=== PATIENT | male | born 1955 | race Caucasian/White ===

== ENCOUNTER 2020-12-22 17:38 | Inpatient (IN) ==
[2020-12-22] MEDS ORDERED: IOPAMIDOL 100 ML BOTTLE IV ONE (17:39)
[2020-12-22] MEDS ORDERED: 0.9 % SODIUM CHLORIDE 1,000 ML IV ONE ×2 (18:00→18:32)
[2020-12-22] MEDS ORDERED: morphine 4 MG/ML VIAL IV ONE (18:00)
[2020-12-22] MEDS ORDERED: PIPERACILLIN SODIUM/TAZOBACTAM 3.375 GM in DEXTROSE 5% IN WATER 50 ML IV ONE (18:32)
[2020-12-22] MEDS ORDERED: VANCOMYCIN 1,500 MG in 0.9 % SODIUM CHLORIDE 500 ML IV ONE (18:32)
--- NOTE | 2020-12-22 19:05 | XRay Report ---
HISTORY: Failure to thrive, tachycardia and weakness FINDINGS: Right diaphragm has become mildly elevated. Above the diaphragm there is a small opacity which may be a combination of discoid atelectasis and pneumonia. Left lung is clear. The heart size is normal. No adenopathy or pleural effusion are present. Comparison with the prior exam from 04/22/16 shows the opacity in the right lung base is a new finding. 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 The humeral head is impacted against the acromion which is indirect evidence of a rotator cuff tear. Impression: mild atelectasis in the right lung base. There may be superimposed mild pneumonia. Interpreted and Authenticated by: Artis Braun 12/22/20
[2020-12-22 19:24] LABS: Basophils # (Auto) 0.03 K/mcL (0.00-0.30); Basophils % (Auto) 0.2 % (0.0-2.0); Eosinophils # (Auto) 0 K/mcL (0.00-0.70); Eosinophils % (Auto) 0 % (0.0-7.0); Hematocrit 42.7 % (40.1-51.0); Hemoglobin 14.3 g/dL (13.7-17.5); Lymphocytes # (Auto) 1.44 K/mcL (1.50-4.80); Lymphocytes % (Auto) 9.7 % (15.5-49.0); Mean Cell Volume 91.2 fL (80.0-100.0); Mean Corpuscular HGB Conc 33.5 g/dL (31.0-36.0); Mean Platelet Volume 8.8 fL (7.4-10.4); Monocytes # (Auto) 1.09 K/mcL (0.10-0.90); Monocytes % (Auto) 7.3 % (1.0-12.0); Neutrophils % (Auto) 82.8 % (38.0-78.0); Platelet Count 171 K/mcL (140-440); RBC 4.68 M/mcL (4.63-6.08); Red Cell Distribution Width 14.5 % (11.5-14.5); WBC 14.8 K/mcL (4.5-11.0)
[2020-12-22 19:47] LABS: ALT/SGPT 18 U/L (<40); AST/SGOT 33 U/L (<40); Albumin 2.1 gm/dL (3.2-5.2); Albumin/Globulin Ratio 0.3 (1.0-2.3); Alkaline Phosphatase 86 U/L (39-117); Bilirubin,Total 1.5 mg/dL (0.1-1.0); Blood Urea Nitrogen 25 mg/dL (8-23); Calcium 8.7 mg/dL (8.6-10.4); Carbon Dioxide 14 mmol/L (22-30); Chloride 85 mmol/L (96-108); Glomerular Filtration Rate 79; Glucose 167 mg/dL (70-105)
[2020-12-22 20:28] LABS: Appearance,Urine HAZY (Clear); Bilirubin,Urine Negative (Negative); Color,Urine Yellow; Culture Indicated,Urine yes; Glucose,Urine (UA) Negative (Negative); Ketones,Urine 20 mg/dL (Negative); Leukocyte Esterase,Urine Negative /uL (Negative); Mucus,Urine MANY /hpf; Nitrate,Urine Negative (Negative); Protein,Urine Negative (Negative); Specific Gravity,Urine 1.026 (1.000-1.035); Urine Hyaline Cast 17 /lph (0-2); Urine RBC > 182 /hpf (0-1); Urine Squamous Epithelial Cell 0 /hpf (0-4); Urine WBC 15 /hpf (0-4)
--- NOTE | 2020-12-22 20:55 | Emergency Department Note ---
HPI General Chief complaint: Weakness Stated complaint: Failure to thrive, tachycardia, weakness Time Seen by Provider: 12/22/20 17:59 Source: patient and EMS Mode of arrival: EMS Limitations: no limitations History of Present Illness HPI Narrative: Narrative: Patient is a 65-year-old male who presented with chief complaint of not feeling well. Patient was brought in by EMS after his brother found him at the hotel where he was staying laying down and unable to get up with help. Patient states over the past 3 weeks has been getting worse and worse in terms of feeling fatigued, weak, and having occasional body aches. He states that also started the same time that he had some redness and discomfort in his left lower extremity. He states that has worsened over the week, and has started ooze blood at times. He denies any known trauma to the area, and otherwise denies any known fever, headache, cough, shortness of breath, chest pain, nausea, vomiting, abdominal pain, changes in bowel movements or urinary symptoms. Patient does not follow with a PCP. Related Data Home Medications Medication Instructions Recorded Confirmed No Known Home Meds 12/22/20 12/22/20 Allergies Allergy/AdvReac Type Severity Reaction Status Date / Time No Known Drug Allergies Allergy Verified 12/22/20 17:42 Review of Systems ROS ROS Narrative: Narrative: All systems ED: reviewed and negative except as stated. [facility] Narrative Patient History Narrative: Narrative: Medical/Surgical/Family History All Active Problems (Updated 12/22/20 @ 20:59 by Arie Lomas DO) Sepsis (Acute) Cellulitis (Acute) Hyponatremia (Acute) Social History Smoking Status: Former smoker Exam Narrative Narrative: Narrative: Patient is laying in bed, talking normally and appropriately. He does not appear to be in acute discomfort or distress. Patient does appear to be cachectic and disheveled in nature. General Limitations: no limitations Head Head: Present atraumatic and normocephalic Eye Eye: Present normal appearance, PERRL and EOMI; Absent scleral icterus and conju nctival injection ENT ENT: Present normal oropharynx and mucous membranes moist Neck Neck: Present full ROM and trachea midline; Absent tenderness and lymphadenopathy Chest Chest: Present symmetric chest wall rise Respiratory Respiratory: Present normal lung sounds bilaterally; Absent respiratory distress, rales/crackles, wheezes, stridor and accessory muscle use Cardiovascular Cardiovascular: Present regular rate and normal rhythm; Absent systolic murmur and diastolic murmur Adbominal Abdominal: Present soft; Absent tenderness, guarding, rebound, rigidity and mass Extremities Extremities: Absent pedal edema, pretibial edema and calf tenderness Expanded Lower Extremity Foot/toe: Present full ROM, erythema and other (Oozy blood and erythema consistent with what appears to be cellulitis. No obvious open wound or evidence of diabetic foot ulcer.); Absent swelling, ecchymosis, deformity and crepitus Back Back: Absent CVA tenderness (R), CVA tenderness (L) and spinous process tenderness Neurological Neurological: Present alert and oriented X3 Psychiatric Psychiatric: Present normal affect and normal mood Skin Skin: Present warm (WNL) and dry Course Vital Signs Vital signs: Vital Signs Temperature 98.8 F 12/22/20 17:38 Pulse Rate 140 H 12/22/20 17:38 Respiratory Rate 28 H 12/22/20 17:38 Blood Pressure 146/73 12/22/20 17:38 Pulse Oximetry (%) 97 12/22/20 17:38 Temperature 98.8 F 12/22/20 17:38 Pulse Rate 101 H 12/22/20 20:46 Respiratory Rate 18 12/22/20 20:46 Blood Pressure 148/77 12/22/20 20:46 Pulse Oximetry (%) 96 12/22/20 20:46 MDM MDM Narrative Medical decision making narrative: Narrative: Patient is a 65-year-old male present with chief complaint of not feeling well. Patient presented initially with tachycardia in the 130s to 140s, though blood pressures were stable. Initial exam and discussion with the patient suggested likely a issue with sepsis secondary to cellulitis of the foot. Initial blood work showed elevated white blood count, elevated lactic acid of 2.1, and hyponatremia at 117. Blood glucose was only 167. Patient was started on broad- spectrum antibiotics and IV fluids prior to blood work returning, and we will stop any further fluids at this time due to his hyponatremia and not wanting to over correcting too quickly. Chest x-ray was nonacute, and at this time I do have a high suspicion that the source is his foot. Plan will be to admit him to the hospital for sepsis and further work-up and management. Patient is agreeable to the plan at this time is no further concerns or questions. I did discuss the case with the hospitalist. Lab Data Result diagrams: 12/22/20 18:00 12/22/20 18:00 Labs: Lab Results 12/22/20 12/22/20 12/22/20 Range/Units 18:00 18:00 19:00 WBC 14.8 H (4.5-11.0) K/mcL RBC 4.68 (4.63-6.08) M/mcL Hgb 14.3 (13.7-17.5) g/dL Hct 42.7 (40.1-51.0) % MCV 91.2 (80.0-100.0) fL MCH 30.6 (26.0-34.0) pg MCHC 33.5 (31.0-36.0) g/dL RDW 14.5 (11.5-14.5) % Plt Count 171 (140-440) K/mcL MPV 8.8 (7.4-10.4) fL Neut % (Auto) 82.8 H (38.0-78.0) % Lymph % (Auto) 9.7 L (15.5-49.0) % [place] % (Auto) 7.3 (1.0-12.0) % Eos % (Auto) 0 (0.0-7.0) % Baso % (Auto) 0.2 (0.0-2.0) % Lymph # (Auto) 1.44 L (1.50-4.80) K/mcL [place] # (Auto) 1.09 H (0.10-0.90) K/mcL Eos # (Auto) 0 (0.00-0.70) K/mcL Baso # (Auto) 0.03 (0.00-0.30) K/mcL Absolute Neutrophils 12.27 H (1.80-8.00) K/mcL Sodium 117 L* (133-145) mmol/L Potassium 4.0 (3.3-5.1) mmol/L Chloride 85 L (96-108) mmol/L Carbon Dioxide 14 L (22-30) mmol/L Anion Gap 18.0 H (8.0-16.0) BUN 25 H (8-23) mg/dL Creatinine 1.0 (0.7-1.2) mg/dL GFR Calculation 79 Glucose 167 H (70-105) mg/dL Calcium 8.7 (8.6-10.4) mg/dL Total Bilirubin 1.5 H (0.1-1.0) mg/dL AST 33 (<40) U/L ALT 18 (<40) U/L Alkaline Phosphatase 86 (39-117) U/L Total Protein 8.1 (5.9-8.4) gm/dL Albumin 2.1 L (3.2-5.2) gm/dL Globulin 6.0 H (2.2-3.7) gm/dL Albumin/Globulin Ratio 0.3 L (1.0-2.3) Urine Color Yellow Urine Appearance Hazy A (Clear) Urine pH 6.0 (5.0-9.0) Ur Specific [place] 1.026 (1.000-1.035) Urine Protein Negative (Negative) mg/dL Urine Glucose (UA) Negative (Negative) mg/dL Urine Ketones 20 A (Negative) mg/dL Urine Occult Blood 0.20 (Negative) mg/dL Urine Nitrate Negative (Negative) Urine Bilirubin Negative (Negative) mg/dL Urine Urobilinogen 4.0 A mg/dL Ur Leukocyte Esterase Negative (Negative) /uL Urine RBC > 182 H (0-1) /hpf Urine WBC 15 H (0-4) /hpf Ur Squamous Epith Cells 0 (0-4) /hpf Urine Bacteria None (0) /hpf Hyaline Casts 17 H (0-2) /lph Urine Mucus Many A (None) /hpf Ur Culture Indicated? yes ED POC Tests ED POC Tests: RUSS - Influenza A Negative RUSS - Influenza B Negative RUSS - SARS Antigen Negative CC TIME Critical Care Time Critical Care Time: Yes Total Critical Care Time: 60 Discharge Plan Patient/Caregiver Discharge Instructions Pt seen by PRACTICE PHYSICIAN/PA only: No Clinical Impression: Sepsis, Cellulitis, Hyponatremia Patient Disposition: Xfer As Inpt ([facility]) Condition: Fair Follow up with: No,PCP [Primary Care Provider] - Prescriptions: No Action No Known Home Meds RF: 0
--- NOTE | 2020-12-22 21:34 | Internal Med History&Physical ---
HPI History of Present Illness Patient information: Note initiated : 12/22/20 at 9:25 pm Service Date, if different from initiated Date: [] Patient: Ken Hook a 65 y/o M admitted on for Failure to thrive, tachycardia, weakness. Chief Complaint: [sepsis 2/2 left diabetic ulcer, hyponateremia] History of present illness: Mr. Hook is a 65 year old M history of type 2 diabetes mellitus, medical noncompliance, presenting with 3 weeks history of le ft foot ulcer as well as general body weakness. There was no prior similar episode. Patient does not recall having any injury or trauma to his left foot. Patient is medically noncompliant and he is not taking any medications. Patient is complaining of 3-week history of left foot ulcer on the plantar aspect with associated severe constant sharp pain. He is also complaining of general body weakness to the point that he cannot get out of the bed for the last 3 weeks. He denies any associated fever chills or diaphoresis. There is no alleviating or exacerbating factors. No GI symptoms such as nausea vomiting diarrhea or constipation's. Due to his symptoms, he presented to our ED this evening for further evaluations. Vital signs significant for tachycardia with heart rate in the 1 teens, with the rest of the vital signs within normal limits. Labs significant for leukocytosis with WBC 14.8. Lactic acid pending. Procalcitonin pending. Serum sodium level 117, serum glucose level 167, bicarb 14, anion gap 18. Imagines results pending. Constitutional Constitutional: Present weakness; Absent chills, excessive sweating, fatigue and fever(s) EENT Eyes: Absent blurry vision, change in vision, loss of vision and other visual disturbances Ears: Absent decreased hearing and tinnitus Nose, mouth and throat: Absent abnormal hearing, dry mouth, headache(s), nasal congestion and sore throat Cardiovascular Cardiovascular: Absent chest pain, chest pain at rest, edema, irregular heart rhythm and palpatations Respiratory Respiratory: Absent cough, dyspnea and wheezing Gastrointestinal Gastrointestinal: Absent abdominal pain, constipation, diarrhea, nausea and vomiting Musculoskeletal Musculoskeletal: Absent back pain, deformity, limited range of motion, muscle cramps, muscle weakness and numbness Additional comments: Left foot pain Integumentary Integumentary: Absent lesions, rash and wounds Neurological Neurological: Absent focal weakness, headache(s) and numbness Psychiatric Psychiatric: Absent anxiety, depression and hallucinations PFSH PFSH All Active Problems (Updated 12/22/20 @ 21:30 by Robel Mccauley MD) Medical non-compliance (Acute) T2DM (type 2 diabetes mellitus) (Acute) Diabetic foot ulcer (Acute) Sepsis (Acute) Cellulitis (Acute) Hyponatremia (Acute) MEDS/ALLERGIES Home Medications and Allergies Home Medications Medication Instructions Recorded Confirmed Type No Known Home Meds 12/22/20 12/22/20 History Allergies Allergy/AdvReac Type Severity Reaction Status Date / Time No Known Drug Allergies Allergy Verified 12/22/20 17:42 EXAM Constitutional Vitals: Temp Pulse Resp BP Pulse Ox 37.1 C 114 H 21 163/75 96 12/22/20 17:38 12/22/20 21:07 12/22/20 21:07 12/22/20 21:01 12/22/20 21:07 General appearance: cooperative, disheveled and no acute distress Head Head exam: Present atraumatic and normocephalic Eye Eye exam: Present EOMI and PERRL ENT ENT exam: Present mucous membranes moist, normal exam and normal external ear exam Neck Neck exam: Present normal inspection; Absent lymphadenopathy, tenderness and thyromegaly Respiratory Respiratory exam: Absent accessory muscle use, respiratory distress and wheezes Cardiovascular Cardiovascular exam: Present normal rate and rhythm; Absent JVD GI/Abdominal GI/Abdominal exam: Present normal bowel sounds and soft; Absent organomegaly and tenderness Rectal Rectal exam: Present deferred Additional comments: Cunha catheter in place Extremities Exam Extremities exam: Present full ROM, normal capillary refill and tenderness; Absent normal inspection Additional comments: Left plantar foot ulcer covered with wound dressing Neurological Exam Neurological exam: Present alert, CN II-XII intact and oriented X3; Absent motor sensory deficit Psychiatric Psychiatric exam: Present normal affect and normal mood; Absent anxious and depressed Skin Skin exam: Present dry, erythema, rash and warm; Absent intact DATA Data Completed and Pending Labs: Labs from last 24 hours 12/22/20 12/22/20 12/22/20 19:00 18:00 18:00 WBC 14.8 H RBC 4.68 Hgb 14.3 Hct 42.7 MCV 91.2 MCH 30.6 MCHC 33.5 RDW 14.5 Plt Count 171 MPV 8.8 Neut % (Auto) 82.8 H Lymph % (Auto) 9.7 L [place] % (Auto) 7.3 Eos % (Auto) 0 Baso % (Auto) 0.2 Lymph # (Auto) 1.44 L [place] # (Auto) 1.09 H Eos # (Auto) 0 Baso # (Auto) 0.03 Absolute Neutrophils 12.27 H Sodium 117 L* Potassium 4.0 Chloride 85 L Carbon Dioxide 14 L Anion Gap 18.0 H BUN 25 H Creatinine 1.0 GFR Calculation 79 Glucose 167 H Calcium 8.7 Total Bilirubin 1.5 H AST 33 ALT 18 Alkaline Phosphatase 86 Total Protein 8.1 Albumin 2.1 L Globulin 6.0 H Albumin/Globulin Ratio 0.3 L Urine Color Yellow Urine Appearance Hazy A Urine pH 6.0 Ur Specific [place] 1.026 Urine Protein Negative Urine Glucose (UA) Negative Urine Ketones 20 A Urine Occult Blood 0.20 Urine Nitrate Negative Urine Bilirubin Negative Urine Urobilinogen 4.0 A Ur Leukocyte Esterase Negative Urine RBC > 182 H Urine WBC 15 H Ur Squamous Epith Cells 0 Urine Bacteria None Hyaline Casts 17 H Urine Mucus Many A Ur Culture Indicated? yes A/P Assessment and plan (1) Sepsis: Status: Acute (2) Diabetic foot ulcer: Status: Acute (3) T2DM (type 2 diabetes mellitus): Status: Acute (4) Hyponatremia: Status: Acute (5) Medical non-compliance: Status: Acute Narrative A/P Narrative: Assessment and Plans: #1 clinical sepsis secondary to left foot plantar aspect diabetic foot ulcer: Admit to inpatient PCU telemetry Consult physics professor Dr. Cortez, recommendation appreciated Serial lactic acid Procalcitonin Blood culture Wound culture CBC with auto differential in the morning to trend WBC Vancomycin, MRSA screening, okay to DC vancomycin when MRSA screening is negative Zosyn Tylenol as needed fever Oxycodone as needed moderate pain Morphine IV as needed severe pain Physical therapy evaluation and treatment Occupational Therapy evaluation and treatment Hemoglobin A1c Hold any oral hypoglycemics Low-dose correctional scale insulin is suggested Accu-Chek AC at bedtime Hypoglycemia protocol Diabetic diet certified breastfeeding educator 2. Hyponatremia: Serum osmolality, urine osmolality, random urine sodium level, TSH to investigate the nature of the hyponatremia Status post IV fluid boluses given in the ED, to be followed by IV NS at 75 cc/h BMP every 8 hours, goals of corrections 8-10 points over the first 24 hours in order to avoid neurological consequences such as central pontine myelinolysis 3. 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
[2020-12-22 22:01] LABS: Osmolality,Urine 776 mOSM/kg (80-1000)
[2020-12-22] MEDS ORDERED: ONDANSETRON 4 MG/2 ML VIAL IV PRN (22:23)
[2020-12-22] MEDS ORDERED: IPRATROPIUM/ALBUTEROL 3 ML AMPUL.NEB NEB PRN (22:23)
[2020-12-22] MEDS ORDERED: DEXTROSE 50% 50 ML VIAL IV PRN (22:23)
[2020-12-22] MEDS ORDERED: SENNOSIDES 1 TABLET PO PRN (22:23)
[2020-12-22] MEDS ORDERED: morphine 4 MG/ML VIAL IV PRN (22:23)
[2020-12-22] MEDS ORDERED: LACTULOSE 20 GM/30 ML ORAL.SOL PO PRN (22:23)
[2020-12-22] MEDS ORDERED: DEXTROSE 31 GM ORAL.SUSP PO PRN (22:23)
[2020-12-22] MEDS ORDERED: 0.9 % SODIUM CHLORIDE 1,000 ML IV SCH (22:23)
[2020-12-22] MEDS ORDERED: VANCOMYCIN PER PHARMACY IV ONE (22:23)
[2020-12-22 22:50] LABS: Thyroid Stimulating Hormone 1.15 uIU/mL (0.27-5.01)
[2020-12-22 22:52] LABS: Sodium, Urine Random 20 mmol/L
[2020-12-22 23:51] LABS: Blood Urea Nitrogen 25 mg/dL (8-23); Calcium 7.7 mg/dL (8.6-10.4); Carbon Dioxide 22 mmol/L (22-30); Chloride 96 mmol/L (96-108); Glomerular Filtration Rate 99; Glucose 129 mg/dL (70-105)
[2020-12-23] MEDS: PIPERACILLIN SODIUM/TAZOBACTAM 3.375 GM in DEXTROSE 5% IN WATER 50 ML IV SCH ×5 (00:31→23:35)
[2020-12-23 02:19] LABS: Hemoglobin A1C 5.2 % Hgb (4.0-6.0)
[2020-12-23] MEDS: 0.9 % SODIUM CHLORIDE 10 ML SYRINGE IV SCH ×4 (02:27→21:16)
[2020-12-23] MEDS ORDERED: VANCOMYCIN PER PHARMACY IV SCH (06:45)
[2020-12-23] MEDS: INSULIN LISPRO 1 UNIT/0.01 ML UNIT SQ SCH ×4 (08:01→21:16)
--- NOTE | 2020-12-23 08:16 | XRay Report ---
HISTORY: Left foot infection FINDINGS: There is severe erosion and fragmentation of the distal half of the fifth metatarsal. There is also erosion at the base of the adjacent proximal phalanx of the fifth toe. There is an open skin wound and soft tissue swelling. The remainder of the bones are normally mineralized. The remainder of the joint spaces are normal and there is no underlying arthritis except for a calcaneal spur. No vascular calcifications are present. IMPRESSION: Severe osteomyelitis involving the fifth metatarsal with milder osteomyelitis in the proximal phalanx of the fifth toe Interpreted and Authenticated by: Artis Braun 12/23/20
--- NOTE | 2020-12-23 08:32 | Cat Scan Report ---
History: diabetic with infection in the left foot and osteomyelitis in the fifth metatarsal TECHNIQUE: On injection of intravenous nonionic contrast the foot was imaged in axial plane at 2.5 mm intervals. Sagittal and coronal reformats were created. The radiation exposure was limited using dose reduction technology. FINDINGS: There is severe erosion of the distal half of the fifth metatarsal, with fragmentation into multiple small bone fragments. There is milder erosion in the medullary space in the proximal half of the shaft of the fifth metatarsal but the overlying cortex is intact. Infection extends across the metatarsal phalangeal joint into the base of the fifth metatarsal. There is erosion and mild fragmentation at the base of the proximal phalanx. There is a tiny bubble of air in the soft tissues at this level. The remainder the bones in the foot are intact with no other site of infection or other fracture. There is an abscess located along the dorsal lateral aspect of the foot centered over the fifth metatarsal. This extends medially and overlies the proximal shafts of the third and fourth metatarsals. The abscess measures 1.5 x 3.5 x 5 cm. It is multiloculated. There is surrounding cellulitis. There is very little atherosclerotic calcification in the foot. There is normal blood flow in the dorsalis pedis and posterior tibial arteries. Calcaneal spur is seen along the posterior border. IMPRESSION: Severe osteomyelitis in the fifth metatarsal and milder osteomyelitis in the proximal phalanx of fifth toe. Subcutaneous abscess along the dorsal lateral aspect of the foot Interpreted and Authenticated by: Artis Braun 12/23/20
[2020-12-23 08:34] LABS: ALT/SGPT 13 U/L (<40); AST/SGOT 30 U/L (<40); Albumin 1.7 gm/dL (3.2-5.2); Albumin/Globulin Ratio 0.3 (1.0-2.3); Alkaline Phosphatase 72 U/L (39-117); Bilirubin,Total 1.2 mg/dL (0.1-1.0); Blood Urea Nitrogen 22 mg/dL (8-23); Calcium 8.2 mg/dL (8.6-10.4); Carbon Dioxide 22 mmol/L (22-30); Chloride 97 mmol/L (96-108); Globulin 4.9 gm/dL (2.2-3.7); Glomerular Filtration Rate 106; Glucose 101 mg/dL (70-105); Phosphorous 2.1 mg/dL (2.5-4.5)
[2020-12-23 09:28] LABS: Blood Urea Nitrogen 22 mg/dL (8-23); Calcium 8.2 mg/dL (8.6-10.4); Carbon Dioxide 23 mmol/L (22-30); Chloride 97 mmol/L (96-108); Glomerular Filtration Rate 106; Glucose 108 mg/dL (70-105)
[2020-12-23] MEDS: HEPARIN 5,000 UNIT/ML VIAL SQ SCH ×2 (10:21→21:15)
[2020-12-23] MEDS: VANCOMYCIN 1,500 MG in 0.9 % SODIUM CHLORIDE 500 ML IV SCH ×2 (10:21→21:15)
[2020-12-23] MEDS: DOCUSATE SODIUM 100 MG CAPSULE PO SCH ×2 (10:27→21:15)
[2020-12-23 10:48] LABS: Basophils # (Auto) 0.04 K/mcL (0.00-0.30); Basophils % (Auto) 0.3 % (0.0-2.0); Eosinophils # (Auto) 0.01 K/mcL (0.00-0.70); Eosinophils % (Auto) 0.1 % (0.0-7.0); Hematocrit 35.2 % (40.1-51.0); Hemoglobin 11.8 g/dL (13.7-17.5); Lymphocytes # (Auto) 1.17 K/mcL (1.50-4.80); Lymphocytes % (Auto) 8.8 % (15.5-49.0); Mean Cell Volume 91.2 fL (80.0-100.0); Mean Corpuscular HGB Conc 33.5 g/dL (31.0-36.0); Mean Platelet Volume 9.1 fL (7.4-10.4); Monocytes # (Auto) 1.15 K/mcL (0.10-0.90); Monocytes % (Auto) 8.6 % (1.0-12.0); Neutrophils % (Auto) 82.2 % (38.0-78.0); Platelet Count 122 K/mcL (140-440); RBC 3.86 M/mcL (4.63-6.08); Red Cell Distribution Width 14.7 % (11.5-14.5); WBC 13.3 K/mcL (4.5-11.0)
--- NOTE | 2020-12-23 13:54 | Orthopedic Consult Note ---
HPI Data of Consult Consult date: 12/23/20 Primary Care Provider: PCP No Consult Narrative Patient Information: Note initiated : 12/23/20 at 1:51 pm Service Date, if different from initiated Date: [] Patient: Ken Hook a 65 y/o M admitted on 12/22/20 for Failure to thrive, tachycardia, weakness. Chief Complaint: [left foot infection] Ken is a 65-year-old male with a longstanding history of type 2 diabetes mellitus and foot ulcerations. He has had history of sepsis and cellulitis. He is currently dealing with an ulceration with bone destruction of the left foot. The preliminary CT and x-ray results show severe bony destruction to the left fifth metatarsal and proximal phalanx of left fifth toe. Clinically these areas are red swollen and draining. He does not have much discomfort from this area as there is profound neuropathy in his bilateral lower extremities. He is concerned about losing portion of his foot and has questions about balance. This comes is surprised and he did not realize that his bone was infected and would lead to these complications. cc:: CC: Robel Mccauley MD [facility] All Active Problems (Updated 12/22/20 @ 21:30 by Robel Mccauley MD) Medical non-compliance (Acute) T2DM (type 2 diabetes mellitus) (Acute) Diabetic foot ulcer (Acute) Sepsis (Acute) Cellulitis (Acute) Hyponatremia (Acute) MEDS/ALLERGIES Home Medications and Allergies Home Medications Medication Instructions Recorded Confirmed Type ibuprofen 800 mg PO QDAY PRN 12/23/20 12/23/20 History Allergies Allergy/AdvReac Type Severity Reaction Status Date / Time No Known Drug Allergies Allergy Verified 12/22/20 17:42 Physical Examination Narrative Narrative: Narrative: Ankle & Foot right: Foot appearance: swelling, erythema and other (Full-thickness wound right left fifth ray lateral aspect down to bone.) A/P Time Spent With Patient Time: Total time spent is greater than 50% in coordination of care (as documented) at patient's floor/unit and/or counseling patient: Patient evaluated and treated today to reveal the x-ray results of the bone infection consistent with clinical signs of infection Diabetic full thickness ulceration to bone of the left foot fifth metatarsal with toe and metatarsal osteomyelitis Plan is partial fifth ray amputation left foot pending stabilization constitutional likely later this week.
--- NOTE | 2020-12-23 14:41 | Internal Med Progress Note ---
SUBJECTIVE Subjective Patient information: Note initiated : 12/23/20 at 2:33 pm Service Date, if different from initiated Date: [] Patient: Ken Hook a 65 y/o M admitted on 12/22/20 for Failure to thrive, tachycardia, weakness. Chief Complaint: [diabetic foot ulcer with osteomyelitis of the left foot] Interval history: History of present illness: Mr. Hook is a 65 year old M history of type 2 diabetes mellitus, medical noncompliance, presenting with 3 weeks history of left foot ulcer as well as general body weakness. There was no prior similar episode. Patient does not recall having any injury or trauma to his left foot. Patient is medically noncompliant and he is not taking any medications. Patient is complaining of 3-week history of left foot ulcer on the plantar aspect with associated severe constant sharp pain. He is also compl aining of general body weakness to the point that he cannot get out of the bed for the last 3 weeks. He denies any associated fever chills or diaphoresis. There is no alleviating or exacerbating factors. No GI symptoms such as nausea vomiting diarrhea or constipation's. Due to his symptoms, he presented to our ED this evening for further evaluations. Vital signs significant for tachycardia with heart rate in the 1 teens, with the rest of the vital signs within normal limits. Labs significant for leukocytosis with WBC 14.8. Lactic acid pending. Procalcitonin pending. Serum sodium level 117, serum glucose level 167, bicarb 14, anion gap 18. Imagines results pending. 12/23: Afebrile overnight. Blood culture growing gram positive cocci in chain. Left foot CT: severe osteomyelitis in the fifth metatarsal and milder osteomyelitis in the proximal phalanx of the fifth toe. Fasting glucose 108. Serum sodium 125. WBC 13.3. c/o mild left foot pain. Denies fever or chills or sweating. Constitutional Vitals: Vital Signs Temp Pulse Resp BP Pulse Ox 36.6 C 103 H 21 116/87 96 12/23/20 12:00 12/23/20 08:07 12/23/20 12:00 12/23/20 12:00 12/23/20 08:07 Period Temp Pulse Resp BP Sys/Jackson Pulse Ox Last 24 Hr 36.1 C-37.1 C 80-140 16-30 102-169/59-100 93-98 Intake and Output 12/23/20 12/23/20 12/23/20 05:59 13:59 21:59 Intake Total 790 1610 120 Output Total 1100 Balance -310 1610 120 Weight 92.164 kg Intake & Output: Intake & Output 12/23/20 12/23/20 12/23/20 05:59 13:59 21:59 Intake Total 790 1610 120 Output Total 1100 Balance -310 1610 120 Weight 92.164 kg Intake: IV 550 1490 Sodium Chloride 0.9% 1,000 ml @ 890 75 mls/hr IV .[id number] [facility] Rx#: [id number] Zosyn 3.375 gm In Dextrose 5% 50 100 in Water 50 ml @ 100 mls/hr IV Q6H [facility] Rx#:[id number] Vancomycin 1,500 mg In Sodium 500 500 Chloride 0.9% 500 ml @ 333.3 mls/hr IV Q12H [facility] Rx#: [id number] Oral 240 120 120 Output: Urine Catheter Amount 1100 Other: Meal Breakfast Lunch Percent of Meal Consumed 25% Refused Feeding Ability Assist with Tray Set Up Urine Appearance Clear Uretheral ([place]) Clear Urine Color Bright Yellow Uretheral ([place]) Light Lexus General appearance: cooperative, disheveled and no acute distress Head Head exam: Present atraumatic and normocephalic Eye Eye exam: Present EOMI and PERRL ENT ENT exam: Present mucous membranes moist, normal exam and normal external ear exam Neck Neck exam: Present normal inspection; Absent lymphadenopathy, tenderness and thyromegaly Respiratory Respiratory exam: Absent accessory muscle use, respiratory distress and wheezes Cardiovascular Cardiovascular exam: Present normal rate and rhythm; Absent JVD GI/Abdominal GI/Abdominal exam: Present normal bowel sounds and soft; Absent organomegaly and tenderness Rectal Rectal exam: Present deferred Extremities Exam Extremities exam: Present full ROM, normal capillary refill and tenderness; Absent normal inspection Additional comments: Left plantar foot ulcer covered with wound dressing Neurological Exam Neurological exam: Present alert, CN II-XII intact and oriented X3; Absent motor sensory deficit Psychiatric Psychiatric exam: Present normal affect and normal mood; Absent anxious and depressed Skin Skin exam: Present dry; Absent intact Additional comments: Left plantar foot ulcer covered with wound dressing OBJ DATA Labs CBC & Chem 7: 12/23/20 05:00 12/23/20 07:55 Labs: Abnormal Lab Results 12/23/20 12/23/20 12/23/20 07:55 05:00 05:00 WBC 13.3 H RBC 3.86 L Hgb 11.8 L Hct 35.2 L RDW 14.7 H Plt Count 122 L Neut % (Auto) 82.2 H Lymph % (Auto) 8.8 L Lymph # (Auto) 1.17 L [place] # (Auto) 1.15 H Absolute Neutrophils 10.94 H Sodium 125 L 128 L Chloride Carbon Dioxide Anion Gap 5.0 L BUN Creatinine 0.6 L 0.6 L Glucose 108 H Calcium 8.2 L 8.2 L Phosphorus 2.1 L Total Bilirubin 1.2 H Albumin 1.7 L Globulin 4.9 H Albumin/Globulin Ratio 0.3 L Procalcitonin Urine Appearance Urine Ketones Urine Urobilinogen Urine RBC Urine WBC Hyaline Casts Urine Mucus 12/22/20 12/22/20 12/22/20 22:54 22:53 19:00 WBC RBC Hgb Hct RDW Plt Count Neut % (Auto) Lymph % (Auto) Lymph # (Auto) [place] # (Auto) Absolute Neutrophils Sodium 124 L Chloride Carbon Dioxide Anion Gap 6.0 L BUN 25 H Creatinine Glucose 129 H Calcium 7.7 L Phosphorus Total Bilirubin Albumin Globulin Albumin/Globulin Ratio Procalcitonin 0.17 H Urine Appearance Hazy A Urine Ketones 20 A Urine Urobilinogen 4.0 A Urine RBC > 182 H Urine WBC 15 H Hyaline Casts 17 H Urine Mucus Many A 12/22/20 12/22/20 18:00 18:00 WBC 14.8 H RBC Hgb Hct RDW Plt Count Neut % (Auto) 82.8 H Lymph % (Auto) 9.7 L Lymph # (Auto) 1.44 L [place] # (Auto) 1.09 H Absolute Neutrophils 12.27 H Sodium 117 L* Chloride 85 L Carbon Dioxide 14 L Anion Gap 18.0 H BUN 25 H Creatinine Glucose 167 H Calcium Phosphorus Total Bilirubin 1.5 H Albumin 2.1 L Globulin 6.0 H Albumin/Globulin Ratio 0.3 L Procalcitonin Urine Appearance Urine Ketones Urine Urobilinogen Urine RBC Urine WBC Hyaline Casts Urine Mucus Meds: Medications Acetaminophen (Acetaminophen 325 Mg Tablet) 650 mg PO Q6HP PRN; Protocol PRN Reason: Per Pain Protocol/Fever > 101 Albuterol/Ipratropium (Ipratropium/Albuterol 3 Ml Ampul.Neb) 3 ml NEB Q4HRT PRN PRN Reason: Wheezing Dextrose (Dextrose 50% 50 Ml Vial) 0 ml IV UD PRN PRN Reason: Hypoglycemia Diagnostic Test (Pha) (Accu-Chek 1 Each Strip) 1 each FS ACHS [facility] Last Admin: 12/23/20 12:08 Dose: 1 each Documented by: Docusate Sodium (Docusate Sodium 100 Mg Capsule) 100 mg PO BID [facility] Last Admin: 12/23/20 10:27 Dose: Not Given Documented by: Glucose (Dextrose 31 Gm Oral.Susp) 15 gm PO PRN PRN PRN Reason: Hypoglycemia Heparin Sodium (Porcine) (Heparin 5,000 Unit/Ml Vial) 5,000 unit SQ Q12 [facility] Last Admin: 12/23/20 10:21 Dose: 5,000 unit Documented by: Piperacillin Sod/Tazobactam (Sod 3.375 gm/ Dextrose) 50 mls @ 100 mls/hr IV Q6H [facility]; Protocol Last Infusion: 12/23/20 13:24 Dose: Infused Documented by: Vancomycin HCl 1,500 mg/ (Sodium Chloride) 500 mls @ 333.3 mls/hr IV Q12H [facility] Last Infusion: 12/23/20 12:34 Dose: Infused Documented by: Ibuprofen (Ibuprofen Tablet (Pp) 1 Tablet Tablet) tablet PO QDAY PRN PRN Reason: Inflammation Insulin Human Lispro (Insulin Lispro 1 Unit/0.01 Ml Unit) 0 unit SQ [facility]; Protocol Last Admin: 12/23/20 12:17 Dose: Not Given Documented by: Lactulose (Lactulose 20 Gm/30 Ml Oral.Roxanne) 10 gm PO DAILYP PRN PRN Reason: Constipation Morphine Sulfate (Morphine 4 Mg/Ml Vial) 4 mg IV Q4HP PRN; Protocol PRN Reason: Per Pain Protocol Ondansetron HCl (Ondansetron 4 Mg/2 Ml Vial) 4 mg IV Q4HP PRN; Protocol PRN Reason: Nausea And Vomiting Oxycodone HCl (Oxycodone Hcl 5 Mg Tablet) 10 mg PO Q4HP PRN; Protocol PRN Reason: Per Pain Protocol Pneumococcal Polyvalent Vaccine (Pneumococcal 23-Manasa P-Sac Vac 0.5 Ml Syringe) 0.5 ml IM .ONCE ONE Stop: 12/24/20 10:01 Senna (Sennosides 1 Tablet) 2 tab PO HSP PRN PRN Reason: Constipation Sodium Chloride (0.9 % Sodium Chloride 10 Ml Syringe) 10 ml IV Q8 [facility] Last Admin: 12/23/20 06:29 Dose: 10 ml Documented by: Vancomycin HCl (Vancomycin Per Pharmacy) 1 order IV UD [facility]; Protocol A/P Assessment and plan (1) Sepsis: Status: Acute (2) Diabetic foot ulcer: Status: Acute (3) T2DM (type 2 diabetes mellitus): Status: Acute (4) Hyponatremia: Status: Acute (5) Medical non-compliance: Status: Acute (6) Gram-positive cocci bacteremia: Status: Acute (7) Anemia, normocytic normochromic: Status: Acute Narrative A/P Narrative: Assessment and Plans: #1 clinical sepsis secondary to left foot plantar aspect diabetic foot ulcer with osteomyelitis of fifth metatarsal and proximal phalanx: Stays in inpatient PCU telemetry Consult produce specialist Dr. Cortez, recommendation appreciated. Plan to do surgery (partial fifth toe amputation) Serial lactic acid Procalcitonin Blood culture, growing gram positive cocci in chain Wound culture, no growth to date CBC with auto differential in the morning to trend WBC Vancomycin Zosyn Tylenol as needed fever Oxycodone as needed moderate pain Morphine IV as needed severe pain Physical therapy evaluation and treatment Occupational Therapy evaluation and treatment Hemoglobin A1c Hold any oral hypoglycemics Low-dose correctional scale insulin is suggested Accu-Chek AC at bedtime Hypoglycemia protocol Diabetic diet hospice educator 2. Hyponatremia: Serum osmolality, urine osmolality, random urine sodium level, TSH to inve stigate the nature of the hyponatremia Serum sodium 125 this morning. Saline lock, then CMP daily 3. Medical noncompliance: Continue to rehabilitation counsellor patient on the importance of medical compliance 4. Anemia, normocytic normochromic: cbc w/ auto diff in the AM to trend H/H; transfuse pRBC if hemoglobin <7.0, active bleeding, or symptomatic 5. Gram positive cocci bacteremia: DDx: skin contamination Repeat blood culture on 12/24 2D echocardiogram Vancomycin Zosyn Tylenol PRN fever cbc w/ auto diff in the AM to trend WBC GI prophylaxis: Not currently indicated DVT prophylaxis: Heparin CODE STATUS: Full code Prognosis: Guarded Dispositions: Inpatient PCU telemetry Time Spent With Patient Time: Total time spent is greater than 50% in coordination of care (as documented) at patient's floor/unit and/or counseling patient: QUALITY VTE Deep Vein Thrombosis/Pulmonary Embolism Present on Admission: No
[2020-12-23] MEDS: oxyCODONE HCL 5 MG TABLET PO PRN (16:00)
[2020-12-24] MEDS: oxyCODONE HCL 5 MG TABLET PO PRN ×2 (03:27→21:41)
[2020-12-24] MEDS: PIPERACILLIN SODIUM/TAZOBACTAM 3.375 GM in DEXTROSE 5% IN WATER 50 ML IV SCH ×4 (05:54→23:54)
[2020-12-24] MEDS: 0.9 % SODIUM CHLORIDE 10 ML SYRINGE IV SCH ×3 (05:54→22:52)
[2020-12-24 07:45] LABS: Basophils # (Auto) 0.05 K/mcL (0.00-0.30); Basophils % (Auto) 0.6 % (0.0-2.0); Eosinophils # (Auto) 0.09 K/mcL (0.00-0.70); Eosinophils % (Auto) 1.1 % (0.0-7.0); Hematocrit 34.5 % (40.1-51.0); Hemoglobin 11.2 g/dL (13.7-17.5); Lymphocytes # (Auto) 1.36 K/mcL (1.50-4.80); Lymphocytes % (Auto) 16.6 % (15.5-49.0); Mean Cell Volume 93.8 fL (80.0-100.0); Mean Corpuscular HGB Conc 32.5 g/dL (31.0-36.0); Mean Platelet Volume 8.8 fL (7.4-10.4); Monocytes # (Auto) 0.74 K/mcL (0.10-0.90); Neutrophils % (Auto) 72.7 % (38.0-78.0); Platelet Count 108 K/mcL (140-440); RBC 3.68 M/mcL (4.63-6.08); Red Cell Distribution Width 14.6 % (11.5-14.5); WBC 8.2 K/mcL (4.5-11.0)
[2020-12-24] MEDS: INSULIN LISPRO 1 UNIT/0.01 ML UNIT SQ SCH ×4 (07:55→21:43)
[2020-12-24 08:17] LABS: ALT/SGPT 11 U/L (<40); AST/SGOT 25 U/L (<40); Albumin 1.6 gm/dL (3.2-5.2); Albumin/Globulin Ratio 0.3 (1.0-2.3); Alkaline Phosphatase 59 U/L (39-117); Bilirubin,Total 0.9 mg/dL (0.1-1.0); Blood Urea Nitrogen 18 mg/dL (8-23); Calcium 8.2 mg/dL (8.6-10.4); Carbon Dioxide 23 mmol/L (22-30); Chloride 98 mmol/L (96-108); Globulin 4.7 gm/dL (2.2-3.7); Glomerular Filtration Rate 106; Glucose 84 mg/dL (70-105); Phosphorous 2.2 mg/dL (2.5-4.5)
[2020-12-24] MEDS: VANCOMYCIN 1,500 MG in 0.9 % SODIUM CHLORIDE 500 ML IV SCH ×2 (09:13→21:32)
[2020-12-24] MEDS: HEPARIN 5,000 UNIT/ML VIAL SQ SCH ×2 (09:13→21:31)
[2020-12-24] MEDS: DOCUSATE SODIUM 100 MG CAPSULE PO SCH ×2 (09:23→21:32)
[2020-12-24] MEDS ORDERED: PNEUMOCOCCAL 23-VAL P-SAC VAC 0.5 ML SYRINGE IM ONE (10:00)
--- NOTE | 2020-12-24 10:26 | Internal Med Progress Note ---
SUBJECTIVE Subjective Patient information: Note initiated : 12/24/20 at 10:23 am Service Date, if different from initiated Date: [] Patient: Ken Hook a 65 y/o M admitted on 12/22/20 for Failure to thrive, tachycardia, weakness. Chief Complaint: [diabetic foot with osteomyelitis] Interval history: History of present illness: Mr. Hook is a 65 year old M history of type 2 diabetes mellitus, medical noncompliance, presenting with 3 weeks history of left foot ulcer as well as general body weakness. There was no prior similar episode. Patient does not recall having any injury or trauma to his left foot. Patient is medically noncompliant and he is not taking any medications. Patient is complaining of 3-week history of left foot ulcer on the plantar aspect with associated severe constant sharp pain. He is also complaining of general body weakness to the point that he cannot get out of the bed for the last 3 weeks. He denies any associated fever chills or diaphoresis. There is no alleviating or exacerbating factors. No GI symptoms such as nausea vomiting diarrhea or constipation's. Due to his symptoms, he presented to our ED this evening for further evaluations. Vital signs significant for tachycardia with heart rate in the 1 teens, with the rest of the vital signs within normal limits. Labs significant for leukocytosis with WBC 14.8. Lactic acid pending. Procalcitonin pending. Serum sodium level 117, serum glucose le lucy 167, bicarb 14, anion gap 18. Imagines results pending. 12/23: Afebrile overnight. Blood culture growing gram positive cocci in chain. Left foot CT: severe osteomyelitis in the fifth metatarsal and milder osteomyelitis in the proximal phalanx of the fifth toe. Fasting glucose 108. Serum sodium 125. WBC 13.3. c/o mild left foot pain. Denies fever or chills or sweating. 12/24: Afebrile overnight. Initial blood culture growing gram positive cocci in chain. Left foot CT: severe osteomyelitis in the fifth metatarsal and milder osteomyelitis in the proximal phalanx of the fifth toe. Fasting glucose 84. Serum sodium 126. WBC 8.2. Denies any left foot pain. Denies fever or chills or sweating. Constitutional Vitals: Vital Signs Temp Pulse Resp BP Pulse Ox 36.0 C L 72 15 103/59 95 12/24/20 08:00 12/24/20 08:00 12/24/20 08:00 12/24/20 08:00 12/24/20 08:00 Period Temp Pulse Resp BP Sys/Jackson Pulse Ox Last 24 Hr 35.8 C-36.8 C 67-73 14-23 91-116/51-87 94-98 Intake and Output 12/23/20 12/24/20 12/24/20 21:59 05:59 13:59 Intake Total 170 630 50 Output Total 775 250 Balance -605 380 50 Weight 92.76 kg Intake & Output: Intake & Output 12/23/20 12/24/20 12/24/20 21:59 05:59 13:59 Intake Total 170 630 50 Output Total 775 250 Balance -605 380 50 Weight 92.76 kg Intake: IV 50 550 50 Zosyn 3.375 gm In Dextrose 5% 50 50 50 in Water 50 ml @ 100 mls/hr IV Q6H [facility] Rx#:[id number] Vancomycin 1,500 mg In Sodium 500 Chloride 0.9% 500 ml @ 333.3 mls/hr IV Q12H [facility] Rx#: [id number] Oral 120 80 Output: Urine Catheter Amount 775 250 Other: Meal Lunch Breakfast Percent of Meal Consumed Refused 50% Feeding Ability Assist with Tray Set Up Urine Appearance Clear Clear Urine Color Bright Yellow Bright Yellow General appearance: cooperative, disheveled and no acute distress Head Head exam: Present atraumatic and normocephalic Eye Eye exam: Present EOMI and PERRL ENT ENT exam: Present mucous membranes moist, normal exam and normal external ear exam Neck Neck exam: Present normal inspection; Absent lymphadenopathy, tenderness and thyromegaly Respiratory Respiratory exam: Absent accessory muscle use, respiratory distress and wheezes Cardiovascular Cardiovascular exam: Present normal rate and rhythm; Absent JVD GI/Abdominal GI/Abdominal exam: Present normal bowel sounds and soft; Absent organomegaly and tenderness Rectal Rectal exam: Present deferred Extremities Exam Extremities exam: Present full ROM and normal capillary refill; Absent normal inspection and tenderness Additional comments: Left plantar foot ulcer covered with wound dressing Neurological Exam Neurological exam: Present alert, CN II-XII intact and oriented X3; Absent motor sensory deficit Psychiatric Psychiatric exam: Present normal affect and normal mood; Absent anxious and depressed Skin Skin exam: Present dry; Absent intact Additional comments: Left plantar foot ulcer covered with wound dressing OBJ DATA Labs CBC & Chem 7: 12/24/20 05:29 12/24/20 05:29 Labs: Abnormal Lab Results 12/24/20 12/24/20 12/23/20 05:29 05:29 07:55 WBC RBC 3.68 L Hgb 11.2 L Hct 34.5 L RDW 14.6 H Plt Count 108 L Neut % (Auto) Lymph % (Auto) Lymph # (Auto) 1.36 L [place] # (Auto) Absolute Neutrophils Sodium 126 L 125 L Chloride Carbon Dioxide Anion Gap 5.0 L 5.0 L BUN Creatinine 0.6 L 0.6 L Glucose 108 H Calcium 8.2 L 8.2 L Phosphorus 2.2 L Total Bilirubin Albumin 1.6 L Globulin 4.7 H Albumin/Globulin Ratio 0.3 L Procalcitonin Urine Appearance Urine Ketones Urine Urobilinogen Urine RBC Urine WBC Hyaline Casts Urine Mucus 12/23/20 12/23/20 12/22/20 05:00 05:00 22:54 WBC 13.3 H RBC 3.86 L Hgb 11.8 L Hct 35.2 L RDW 14.7 H Plt Count 122 L Neut % (Auto) 82.2 H Lymph % (Auto) 8.8 L Lymph # (Auto) 1.17 L [place] # (Auto) 1.15 H Absolute Neutrophils 10.94 H Sodium 128 L Chloride Carbon Dioxide Anion Gap BUN Creatinine 0.6 L Glucose Calcium 8.2 L Phosphorus 2.1 L Total Bilirubin 1.2 H Albumin 1.7 L Globulin 4.9 H Albumin/Globulin Ratio 0.3 L Procalcitonin 0.17 H Urine Appearance Urine Ketones Urine Urobilinogen Urine RBC Urine WBC Hyaline Casts Urine Mucus 12/22/20 12/22/20 12/22/20 22:53 19:00 18:00 WBC RBC Hgb Hct RDW Plt Count Neut % (Auto) Lymph % (Auto) Lymph # (Auto) [place] # (Auto) Absolute Neutrophils Sodium 124 L 117 L* Chloride 85 L Carbon Dioxide 14 L Anion Gap 6.0 L 18.0 H BUN 25 H 25 H Creatinine Glucose 129 H 167 H Calcium 7.7 L Phosphorus Total Bilirubin 1.5 H Albumin 2.1 L Globulin 6.0 H Albumin/Globulin Ratio 0.3 L Procalcitonin Urine Appearance Hazy A Urine Ketones 20 A Urine Urobilinogen 4.0 A Urine RBC > 182 H Urine WBC 15 H Hyaline Casts 17 H Urine Mucus Many A 12/22/20 18:00 WBC 14.8 H RBC Hgb Hct RDW Plt Count Neut % (Auto) 82.8 H Lymph % (Auto) 9.7 L Lymph # (Auto) 1.44 L [place] # (Auto) 1.09 H Absolute Neutrophils 12.27 H Sodium Chloride Carbon Dioxide Anion Gap BUN Creatinine Glucose Calcium Phosphorus Total Bilirubin Albumin Globulin Albumin/Globulin Ratio Procalcitonin Urine Appearance Urine Ketones Urine Urobilinogen Urine RBC Urine WBC Hyaline Casts Urine Mucus Meds: Medications Acetaminophen (Acetaminophen 325 Mg Tablet) 650 mg PO Q6HP PRN; Protocol PRN Reason: Per Pain Protocol/Fever > 101 Albuterol/Ipratropium (Ipratropium/Albuterol 3 Ml Ampul.Neb) 3 ml NEB Q4HRT PRN PRN Reason: Wheezing Dextrose (Dextrose 50% 50 Ml Vial) 0 ml IV UD PRN PRN Reason: Hypoglycemia Diagnostic Test (Pha) (Accu-Chek 1 Each Strip) 1 each FS ACHS [facility] Last Admin: 12/24/20 07:54 Dose: 1 each Documented by: Docusate Sodium (Docusate Sodium 100 Mg Capsule) 100 mg PO BID [facility] Last Admin: 12/24/20 09:23 Dose: Not Given Documented by: Glucose (Dextrose 31 Gm Oral.Susp) 15 gm PO PRN PRN PRN Reason: Hypoglycemia Heparin Sodium (Porcine) (Heparin 5,000 Unit/Ml Vial) 5,000 unit SQ Q12 [facility] Last Admin: 12/24/20 09:13 Dose: 5,000 unit Documented by: Piperacillin Sod/Tazobactam (Sod 3.375 gm/ Dextrose) 50 mls @ 100 mls/hr IV Q6H [facility]; Protocol Last Infusion: 12/24/20 06:49 Dose: Infused Documented by: Vancomycin HCl 1,500 mg/ (Sodium Chloride) 500 mls @ 333.3 mls/hr IV Q12H [facility] Last Admin: 12/24/20 09:13 Dose: 333 mls/hr Documented by: Ibuprofen (Ibuprofen 200 Mg Tablet) 800 mg PO DAILYP PRN PRN Reason: Inflammation Insulin Human Lispro (Insulin Lispro 1 Unit/0.01 Ml Unit) 0 unit SQ ACHS [facility]; Protocol Last Admin: 12/24/20 07:55 Dose: Not Given Documented by: Lactulose (Lactulose 20 Gm/30 Ml Oral.Roxanne) 10 gm PO DAILYP PRN PRN Reason: Constipation Morphine Sulfate (Morphine 4 Mg/Ml Vial) 4 mg IV Q4HP PRN; Protocol PRN Reason: Per Pain Protocol Ondansetron HCl (Ondansetron 4 Mg/2 Ml Vial) 4 mg IV Q4HP PRN; Protocol PRN Reason: Nausea And Vomiting Oxycodone HCl (Oxycodone Hcl 5 Mg Tablet) 10 mg PO Q4HP PRN; Protocol PRN Reason: Per Pain Protocol Last Admin: 12/24/20 03:27 Dose: 10 mg Documented by: Senna (Sennosides 1 Tablet) 2 tab PO HSP PRN PRN Reason: Constipation Sodium Chloride (0.9 % Sodium Chloride 10 Ml Syringe) 10 ml IV Q8 [facility] Last Admin: 12/24/20 05:54 Dose: 10 ml Documented by: Vancomycin HCl (Vancomycin Per Pharmacy) 1 order IV [facility]; Protocol A/P Assessment and plan (1) Sepsis: Status: Acute (2) Diabetic foot ulcer: Status: Acute (3) T2DM (type 2 diabetes mellitus): Status: Acute (4) Hyponatremia: Status: Acute (5) Medical non-compliance: Status: Acute (6) Gram-positive cocci bacteremia: Status: Acute (7) Anemia, normocytic normochromic: Status: Acute Narrative A/P Narrative: Assessment and Plans: #1 clinical sepsis secondary to left foot plantar aspect diabetic foot ulcer with osteomyelitis of fifth metatarsal and proximal phalanx: Stays in inpatient PCU telemetry Consult electronic bench technician Dr. Cortez, recommendations appreciated. Plan to do surgery (partial fifth toe amputation) Serial lactic acid Procalcitonin Initial blood culture, growing gram positive cocci in chain Repeat blood culture on 12/24 Wound culture, no growth to date CBC with auto differential in the morning to trend WBC Vancomycin Zosyn Tylenol as needed fever Oxycodone as needed moderate pain Morphine IV as needed severe pain Physical therapy evaluation and treatment Occupational Therapy evaluation and treatment Hemoglobin A1c Hold any oral hypoglycemics Low-dose correctional scale insulin is suggested Accu-Chek AC at bedtime Hypoglycemia protocol Diabetic diet nursing educator 2. Hyponatremia: Serum osmolality, urine osmolality, random urine sodium level, TSH to investigate the nature of the hyponatremia Serum sodium 126 this morning. Saline lock, then CMP daily 3. Medical noncompliance: Continue to certified alcohol counselor patient on the importance of medical compliance 4. Anemia, normocytic normochromic: cbc w/ auto diff in the AM to trend H/H; transfuse pRBC if hemoglobin <7.0, active bleeding, or symptomatic 5. Gram positive cocci bacteremia: DDx: skin contamination Repeat blood culture on 12/24 2D echocardiogram, results pending Vancomycin Zosyn Tylenol PRN fever cbc w/ auto diff in the AM to trend WBC GI prophylaxis: Not currently indicated DVT prophylaxis: Heparin CODE STATUS: Full code Prognosis: Guarded Dispositions: Inpatient PCU telemetry Time Spent With Patient Time: Total time spent is greater than 50% in coordination of care (as documented) at patient's floor/unit and/or counseling patient: QUALITY VTE Deep Vein Thrombosis/Pulmonary Embolism Present on Admission: No
[2020-12-25] MEDS: PIPERACILLIN SODIUM/TAZOBACTAM 3.375 GM in DEXTROSE 5% IN WATER 50 ML IV SCH ×3 (06:04→17:35)
[2020-12-25] MEDS: 0.9 % SODIUM CHLORIDE 10 ML SYRINGE IV SCH ×3 (06:16→20:50)
[2020-12-25 08:03] LABS: Basophils # (Auto) 0.07 K/mcL (0.00-0.30); Basophils % (Auto) 0.8 % (0.0-2.0); Eosinophils # (Auto) 0.13 K/mcL (0.00-0.70); Eosinophils % (Auto) 1.5 % (0.0-7.0); Hemoglobin 12.1 g/dL (13.7-17.5); Lymphocytes # (Auto) 1.46 K/mcL (1.50-4.80); Lymphocytes % (Auto) 16.7 % (15.5-49.0); Mean Cell Volume 91.1 fL (80.0-100.0); Mean Corpuscular HGB Conc 34.6 g/dL (31.0-36.0); Mean Platelet Volume 8.7 fL (7.4-10.4); Monocytes # (Auto) 0.73 K/mcL (0.10-0.90); Monocytes % (Auto) 8.3 % (1.0-12.0); Neutrophils % (Auto) 72.7 % (38.0-78.0); Platelet Count 156 K/mcL (140-440); RBC 3.84 M/mcL (4.63-6.08); Red Cell Distribution Width 14.5 % (11.5-14.5); WBC 8.8 K/mcL (4.5-11.0)
[2020-12-25 08:04] LABS: ALT/SGPT 13 U/L (<40); AST/SGOT 24 U/L (<40); Albumin 1.7 gm/dL (3.2-5.2); Albumin/Globulin Ratio 0.3 (1.0-2.3); Alkaline Phosphatase 60 U/L (39-117); Bilirubin,Total 1.1 mg/dL (0.1-1.0); Blood Urea Nitrogen 13 mg/dL (8-23); Calcium 8.1 mg/dL (8.6-10.4); Carbon Dioxide 25 mmol/L (22-30); Chloride 99 mmol/L (96-108); Globulin 4.9 gm/dL (2.2-3.7); Glomerular Filtration Rate 106; Glucose 75 mg/dL (70-105); Phosphorous 2.6 mg/dL (2.5-4.5)
[2020-12-25] MEDS: ACETAMINOPHEN 325 MG TABLET PO PRN (09:00)
[2020-12-25] MEDS: IBUPROFEN 200 MG TABLET PO PRN (09:00)
[2020-12-25] MEDS: DOCUSATE SODIUM 100 MG CAPSULE PO SCH ×2 (09:01→20:50)
[2020-12-25] MEDS: INSULIN LISPRO 1 UNIT/0.01 ML UNIT SQ SCH ×4 (09:01→20:49)
[2020-12-25] MEDS: HEPARIN 5,000 UNIT/ML VIAL SQ SCH ×2 (09:01→20:49)
[2020-12-25] MEDS: VANCOMYCIN 1,500 MG in 0.9 % SODIUM CHLORIDE 500 ML IV SCH ×2 (09:18→20:50)
--- NOTE | 2020-12-25 09:50 | Orthopedic Progress Note ---
SUBJECTIVE Subjective Patient information: Note initiated : 12/25/20 at 9:49 am Service Date, if different from initiated Date: [] Patient: Ken Hook 65 y/o M admitted on 12/22/20 for Failure to thrive, tachycardia, weakness. Chief Complaint: [Left foot infection] Issues sleeping from discomfort but not from his foot. He doesn't feel much from his foot. No new issues otherwise. Constitutional Vitals: Vital Signs Temp Pulse Resp BP Pulse Ox 97.0 F 70 15 104/65 97 12/24/20 20:01 12/25/20 06:03 12/25/20 06:03 12/25/20 06:01 12/25/20 06:03 Period Temp Pulse Resp BP Sys/Jackson Pulse Ox Last 24 Hr 96.8 F-98.8 F 61-70 12-19 94-105/47-65 95-98 Intake and Output 12/24/20 12/25/20 12/25/20 21:59 05:59 13:59 Intake Total 50 550 50 Output Total 450 675 Balance -400 -125 50 Weight 205 lb Intake & Output: Intake & Output 12/24/20 12/25/20 12/25/20 21:59 05:59 13:59 Intake Total 50 550 50 Output Total 450 675 Balance -400 -125 50 Weight 205 lb Intake: IV 50 550 50 Zosyn 3.375 gm In Dextrose 5% 50 50 50 in Water 50 ml @ 100 mls/hr IV Q6H [facility] Rx#:[id number] Vancomycin 1,500 mg In Sodium 500 Chloride 0.9% 500 ml @ 333.3 mls/hr IV Q12H [facility] Rx#: [id number] Output: Urine Catheter Amount 450 675 Other: Urine Appearance Clear Uretheral (Cunha) Clear Urine Color Dark [place] Dark Yellow Uretheral ([place]ha) Bright Yellow Urine Odor Normal OBJ DATA Labs CBC & Chem 7: 12/25/20 05:03 12/25/20 05:03 Labs: Abnormal Lab Results 12/25/20 12/25/20 12/24/20 05:03 05:03 05:29 WBC RBC 3.84 L Hgb 12.1 L Hct 35.0 L RDW Plt Count Neut % (Auto) Lymph % (Auto) Lymph # (Auto) 1.46 L [place] # (Auto) Absolute Neutrophils Sodium 128 L 126 L Chloride Carbon Dioxide Anion Gap 4.0 L 5.0 L BUN Creatinine 0.6 L 0.6 L Glucose Calcium 8.1 L 8.2 L Phosphorus 2.2 L Total Bilirubin 1.1 H Albumin 1.7 L 1.6 L Globulin 4.9 H 4.7 H Albumin/Globulin Ratio 0.3 L 0.3 L Procalcitonin Urine Appearance Urine Ketones Urine Urobilinogen Urine RBC Urine WBC Hyaline Casts Urine Mucus 12/24/20 12/23/20 12/23/20 05:29 07:55 05:00 WBC RBC 3.68 L Hgb 11.2 L Hct 34.5 L RDW 14.6 H Plt Count 108 L Neut % (Auto) Lymph % (Auto) Lymph # (Auto) 1.36 L [place] # (Auto) Absolute Neutrophils Sodium 125 L 128 L Chloride Carbon Dioxide Anion Gap 5.0 L BUN Creatinine 0.6 L 0.6 L Glucose 108 H Calcium 8.2 L 8.2 L Phosphorus 2.1 L Total Bilirubin 1.2 H Albumin 1.7 L Globulin 4.9 H Albumin/Globulin Ratio 0.3 L Procalcitonin Urine Appearance Urine Ketones Urine Urobilinogen Urine RBC Urine WBC Hyaline Casts Urine Mucus 12/23/20 12/22/20 12/22/20 05:00 22:54 22:53 WBC 13.3 H RBC 3.86 L Hgb 11.8 L Hct 35.2 L RDW 14.7 H Plt Count 122 L Neut % (Auto) 82.2 H Lymph % (Auto) 8.8 L Lymph # (Auto) 1.17 L [place] # (Auto) 1.15 H Absolute Neutrophils 10.94 H Sodium 124 L Chloride Carbon Dioxide Anion Gap 6.0 L BUN 25 H Creatinine Glucose 129 H Calcium 7.7 L Phosphorus Total Bilirubin Albumin Globulin Albumin/Globulin Ratio Procalcitonin 0.17 H Urine Appearance Urine Ketones Urine Urobilinogen Urine RBC Urine WBC Hyaline Casts Urine Mucus 12/22/20 12/22/20 12/22/20 19:00 18:00 18:00 WBC 14.8 H RBC Hgb Hct RDW Plt Count Neut % (Auto) 82.8 H Lymph % (Auto) 9.7 L Lymph # (Auto) 1.44 L [place] # (Auto) 1.09 H Absolute Neutrophils 12.27 H Sodium 117 L* Chloride 85 L Carbon Dioxide 14 L Anion Gap 18.0 H BUN 25 H Creatinine Glucose 167 H Calcium Phosphorus Total Bilirubin 1.5 H Albumin 2.1 L Globulin 6.0 H Albumin/Globulin Ratio 0.3 L Procalcitonin Urine Appearance Hazy A Urine Ketones 20 A Urine Urobilinogen 4.0 A Urine RBC > 182 H Urine WBC 15 H Hyaline Casts 17 H Urine Mucus Many A Meds: Medications Acetaminophen (Acetaminophen 325 Mg Tablet) 650 mg PO Q6HP PRN; Protocol PRN Reason: Per Pain Protocol/Fever > 101 Last Admin: 12/25/20 09:00 Dose: 650 mg Documented by: Albuterol/Ipratropium (Ipratropium/Albuterol 3 Ml Ampul.Neb) 3 ml NEB Q4HRT PRN PRN Reason: Wheezing Dextrose (Dextrose 50% 50 Ml Vial) 0 ml IV UD PRN PRN Reason: Hypoglycemia Diagnostic Test (Pha) (Accu-Chek 1 Each Strip) 1 each FS [facility] Last Admin: 12/25/20 09:00 Dose: 1 each Documented by: Docusate Sodium (Docusate Sodium 100 Mg Capsule) 100 mg PO BID [facility] Last Admin: 12/25/20 09:01 Dose: 100 mg Documented by: Glucose (Dextrose 31 Gm Oral.Susp) 15 gm PO PRN PRN PRN Reason: Hypoglycemia Heparin Sodium (Porcine) (Heparin 5,000 Unit/Ml Vial) 5,000 unit SQ Q12 [facility] Last Admin: 12/25/20 09:01 Dose: 5,000 unit Documented by: Piperacillin Sod/Tazobactam (Sod 3.375 gm/ Dextrose) 50 mls @ 100 mls/hr IV Q6H [facility]; Protocol Last Infusion: 12/25/20 06:34 Dose: Infused Documented by: Vancomycin HCl 1,500 mg/ (Sodium Chloride) 500 mls @ 333.3 mls/hr IV Q12H [facility] Last Admin: 12/25/20 09:18 Dose: 333 mls/hr Documented by: Ibuprofen (Ibuprofen 200 Mg Tablet) 800 mg PO DAILYP PRN PRN Reason: Inflammation Last Admin: 12/25/20 09:00 Dose: 800 mg Documented by: Insulin Human Lispro (Insulin Lispro 1 Unit/0.01 Ml Unit) 0 unit SQ [facility]; Protocol Last Admin: 12/25/20 09:01 Dose: Not Given Documented by: Lactulose (Lactulose 20 Gm/30 Ml Oral.Roxanne) 10 gm PO DAILYP PRN PRN Reason: Constipation Morphine Sulfate (Morphine 4 Mg/Ml Vial) 4 mg IV Q4HP PRN; Protocol PRN Reason: Per Pain Protocol Ondansetron HCl (Ondansetron 4 Mg/2 Ml Vial) 4 mg IV Q4HP PRN; Protocol PRN Reason: Nausea And Vomiting Oxycodone HCl (Oxycodone Hcl 5 Mg Tablet) 10 mg PO Q4HP PRN; Protocol PRN Reason: Per Pain Protocol Last Admin: 12/24/20 21:41 Dose: 10 mg Documented by: Senna (Sennosides 1 Tablet) 2 tab PO HSP PRN PRN Reason: Constipation Sodium Chloride (0.9 % Sodium Chloride 10 Ml Syringe) 10 ml IV Q8 [facility] Last Admin: 12/25/20 06:16 Dose: Not Given Documented by: Vancomycin HCl (Vancomycin Per Pharmacy) 1 order IV [facility]; Protocol A/P Time Spent With Patient Time: Heart Inspection: No cardiac heaves or lifts. Symmetrical expansion with respiration, no other wall motions. Palpation: No thrills appreciated. Point of maximal impulse (PMI) (apical impulse) noted at midclavicular line, in fifth intercostal space. Auscultation: Normal S1 and S2, with regular rate and rhythm. S2 > S1 at the base, S1 > S2 at apex. No splitting of the heart sounds heard. No murmur. No S3 or S4, no friction rub. Lungs Lungs are clear to auscultation and percussion bilaterally No crackles heard in the lung bases bilaterally PLAN: 1. Incision and draining left foot 2. Amputation fifth toe left foot 3. Amputation fifth metatarsal left foot
--- NOTE | 2020-12-25 12:20 | Internal Med Progress Note ---
SUBJECTIVE Subjective Patient information: Note initiated : 12/25/20 at 12:15 pm Service Date, if different from initiated Date: [] Patient: Ken Hook a 65 y/o M admitted on 12/22/20 for Failure to thrive, tachycardia, weakness. Chief Complaint: [left diabetic foot/osteomyelitis] Interval history: History of present illness: Mr. Hook is a 65 year old M history of type 2 diabetes mellitus, medical noncompliance, presenting with 3 weeks history of left foot ulcer as well as general body weakness. There was no prior similar episode. Patient does not recall having any injury or trauma to his left foot. Patient is medically noncompliant and he is not taking any medications. Patient is complaining of 3-week history of left foot ulcer on the plantar aspect with associated severe constant sharp pain. He is also complaining of general body weakness to the point that he cannot get out of the bed for the last 3 weeks. He denies any associated fever chills or diaphoresis. There is no alleviating or exacerbating factors. No GI symptoms such as nausea vomiting diarrhea or constipation's. Due to his symptoms, he presented to our ED this evening for further evaluations. Vital signs significant for tachycardia with heart rate in the 1 teens, with the rest of the vital signs within normal limits. Labs significant for leukocytosis with WBC 14.8. Lactic acid pending. Procalcitonin pending. Serum sodium level 117, serum glucose [place] lu[place] 167, bicarb 14, anion gap 18. Imagines results pending. 12/23: Afebrile overnight. Blood culture growing gram positive cocci in chain. Left foot CT: severe osteomyelitis in the fifth metatarsal and milder osteomyelitis in the proximal phalanx of the fifth toe. Fasting glucose 108. Serum sodium 125. WBC 13.3. c/o mild left foot pain. Denies fever or chills or sweating. 12/24: Afebrile overnight. Initial blood culture growing gram positive cocci in chain. Left foot CT: severe osteomyelitis in the fifth metatarsal and milder osteomyelitis in the proximal phalanx of the fifth toe. Fasting glucose 84. Serum sodium 126. WBC 8.2. Denies any left foot pain. Denies fever or chills or sweating. 12/24: Afebrile overnight. wbc 8.8. Serum sodium 128. Fasting glucose 75. Blood culture: S. Viridians, wound culture: P mirabilis. Denies any left foot pain. Denies any fever or chills or sweating. Constitutional Vitals: Vital Signs Temp Pulse Resp BP Pulse Ox 36.1 C 70 15 104/65 97 12/24/20 20:01 12/25/20 06:03 12/25/20 06:03 12/25/20 06:01 12/25/20 06:03 Period Temp Pulse Resp BP Sys/Jackson Pulse Ox Last 24 Hr 36.0 C-36.9 C 61-70 12-19 95-105/55-65 95-98 Intake and Output 12/24/20 12/25/20 12/25/20 21:59 05:59 13:59 Intake Total 50 550 550 Output Total 450 675 Balance -400 -125 550 Weight 92.986 kg Intake & Output: Intake & Output 12/24/20 12/25/20 12/25/20 21:59 05:59 13:59 Intake Total 50 550 550 Output Total 450 675 Balance -400 -125 550 Weight 92.986 kg Intake: IV 50 550 550 Zosyn 3.375 gm In Dextrose 5% 50 50 50 in Water 50 ml @ 100 mls/hr IV Q6H [facility] Rx#:[id number] Vancomycin 1,500 mg In Sodium 500 500 Chloride 0.9% 500 ml @ 333.3 mls/hr IV Q12H [facility] Rx#: [id number] Output: Urine Catheter Amount 450 675 Other: Urine Appearance Clear Uretheral ([place]) Clear Urine Color Dark [place] Dark Yellow Uretheral ([place]) Bright Yellow Urine Odor Normal General appearance: cooperative, disheveled and no acute distress Head Head exam: Present atraumatic and normocephalic Eye Eye exam: Present EOMI and PERRL ENT ENT exam: Present mucous membranes moist, normal exam and normal external ear exam Neck Neck exam: Present normal inspection; Absent lymphadenopathy, tenderness and thyromegaly Respiratory Respiratory exam: Absent accessory muscle use, respiratory distress and wheezes Cardiovascular Cardiovascular exam: Present normal rate and rhythm; Absent JVD GI/Abdominal GI/Abdominal exam: Present normal bowel sounds and soft; Absent organomegaly and tenderness Rectal Rectal exam: Present deferred Extremities Exam Extremities exam: Present full ROM and normal capillary refill; Absent normal inspection and tenderness Additional comments: Left plantar foot ulcer covered with wound dressing Neurological Exam Neurological exam: Present alert, CN II-XII intact and oriented X3; Absent motor sensory deficit Psychiatric Psychiatric exam: Present normal affect and normal mood; Absent anxious and depressed Skin Skin exam: Present dry; Absent intact Additional comments: Left plantar foot ulcer covered with wound dressing OBJ DATA Labs CBC & Chem 7: 12/25/20 05:03 12/25/20 05:03 Labs: Abnormal Lab Results 12/25/20 12/25/20 12/24/20 05:03 05:03 05:29 WBC RBC 3.84 L Hgb 12.1 L Hct 35.0 L RDW Plt Count Neut % (Auto) Lymph % (Auto) Lymph # (Auto) 1.46 L [place] # (Auto) Absolute Neutrophils Sodium 128 L 126 L Chloride Carbon Dioxide Anion Gap 4.0 L 5.0 L BUN Creatinine 0.6 L 0.6 L Glucose Calcium 8.1 L 8.2 L Phosphorus 2.2 L Total Bilirubin 1.1 H Albumin 1.7 L 1.6 L Globulin 4.9 H 4.7 H Albumin/Globulin Ratio 0.3 L 0.3 L Procalcitonin Urine Appearance Urine Ketones Urine Urobilinogen Urine RBC Urine WBC Hyaline Casts Urine Mucus 12/24/20 12/23/20 12/23/20 05:29 07:55 05:00 WBC RBC 3.68 L Hgb 11.2 L Hct 34.5 L RDW 14.6 H Plt Count 108 L Neut % (Auto) Lymph % (Auto) Lymph # (Auto) 1.36 L [place] # (Auto) Absolute Neutrophils Sodium 125 L 128 L Chloride Carbon Dioxide Anion Gap 5.0 L BUN Creatinine 0.6 L 0.6 L Glucose 108 H Calcium 8.2 L 8.2 L Phosphorus 2.1 L Total Bilirubin 1.2 H Albumin 1.7 L Globulin 4.9 H Albumin/Globulin Ratio 0.3 L Procalcitonin Urine Appearance Urine Ketones Urine Urobilinogen Urine RBC Urine WBC Hyaline Casts Urine Mucus 12/23/20 12/22/20 12/22/20 05:00 22:54 22:53 WBC 13.3 H RBC 3.86 L Hgb 11.8 L Hct 35.2 L RDW 14.7 H Plt Count 122 L Neut % (Auto) 82.2 H Lymph % (Auto) 8.8 L Lymph # (Auto) 1.17 L [place] # (Auto) 1.15 H Absolute Neutrophils 10.94 H Sodium 124 L Chloride Carbon Dioxide Anion Gap 6.0 L BUN 25 H Creatinine Glucose 129 H Calcium 7.7 L Phosphorus Total Bilirubin Albumin Globulin Albumin/Globulin Ratio Procalcitonin 0.17 H Urine Appearance Urine Ketones Urine Urobilinogen Urine RBC Urine WBC Hyaline Casts Urine Mucus 12/22/20 12/22/20 12/22/20 19:00 18:00 18:00 WBC 14.8 H RBC Hgb Hct RDW Plt Count Neut % (Auto) 82.8 H Lymph % (Auto) 9.7 L Lymph # (Auto) 1.44 L [place] # (Auto) 1.09 H Absolute Neutrophils 12.27 H Sodium 117 L* Chloride 85 L Carbon Dioxide 14 L Anion Gap 18.0 H BUN 25 H Creatinine Glucose 167 H Calcium Phosphorus Total Bilirubin 1.5 H Albumin 2.1 L Globulin 6.0 H Albumin/Globulin Ratio 0.3 L Procalcitonin Urine Appearance Hazy A Urine Ketones 20 A Urine Urobilinogen 4.0 A Urine RBC > 182 H Urine WBC 15 H Hyaline Casts 17 H Urine Mucus Many A Meds: Medications Acetaminophen (Acetaminophen 325 Mg Tablet) 650 mg PO Q6HP PRN; Protocol PRN Reason: Per Pain Protocol/Fever > 101 Last Admin: 12/25/20 09:00 Dose: 650 mg Documented by: Albuterol/Ipratropium (Ipratropium/Albuterol 3 Ml Ampul.Neb) 3 ml NEB Q4HRT PRN PRN Reason: Wheezing Dextrose (Dextrose 50% 50 Ml Vial) 0 ml IV UD PRN PRN Reason: Hypoglycemia Diagnostic Test (Pha) (Accu-Chek 1 Each Strip) 1 each FS [facility] Last Admin: 12/25/20 11:46 Dose: 1 each Documented by: Docusate Sodium (Docusate Sodium 100 Mg Capsule) 100 mg PO BID [facility] Last Admin: 12/25/20 09:01 Dose: 100 mg Documented by: Glucose (Dextrose 31 Gm Oral.Susp) 15 gm PO PRN PRN PRN Reason: Hypoglycemia Heparin Sodium (Porcine) (Heparin 5,000 Unit/Ml Vial) 5,000 unit SQ Q12 [facility] Last Admin: 12/25/20 09:01 Dose: 5,000 unit Documented by: Piperacillin Sod/Tazobactam (Sod 3.375 gm/ Dextrose) 50 mls @ 100 mls/hr IV Q6H [facility]; Protocol Last Admin: 12/25/20 11:46 Dose: 100 mls/hr Documented by: Vancomycin HCl 1,500 mg/ (Sodium Chloride) 500 mls @ 333.3 mls/hr IV Q12H [facility] Last Infusion: 12/25/20 10:49 Dose: Infused Documented by: Ibuprofen (Ibuprofen 200 Mg Tablet) 800 mg PO DAILYP PRN PRN Reason: Inflammation Last Admin: 12/25/20 09:00 Dose: 800 mg Documented by: Insulin Human Lispro (Insulin Lispro 1 Unit/0.01 Ml Unit) 0 unit SQ [facility]; Protocol Last Admin: 12/25/20 11:51 Dose: Not Given Documented by: Lactulose (Lactulose 20 Gm/30 Ml Oral.Roxanne) 10 gm PO DAILYP PRN PRN Reason: Constipation Morphine Sulfate (Morphine 4 Mg/Ml Vial) 4 mg IV Q4HP PRN; Protocol PRN Reason: Per Pain Protocol Ondansetron HCl (Ondansetron 4 Mg/2 Ml Vial) 4 mg IV Q4HP PRN; Protocol PRN Reason: Nausea And Vomiting Oxycodone HCl (Oxycodone Hcl 5 Mg Tablet) 10 mg PO Q4HP PRN; Protocol PRN Reason: Per Pain Protocol Last Admin: 12/24/20 21:41 Dose: 10 mg Documented by: Senna (Sennosides 1 Tablet) 2 tab PO HSP PRN PRN Reason: Constipation Sodium Chloride (0.9 % Sodium Chloride 10 Ml Syringe) 10 ml IV Q8 [facility] Last Admin: 12/25/20 06:16 Dose: Not Given Documented by: Vancomycin HCl (Vancomycin Per Pharmacy) 1 order IV UD [facility]; Protocol A/P Assessment and plan (1) Sepsis: Status: Acute (2) Diabetic foot ulcer: Status: Acute (3) T2DM (type 2 diabetes mellitus): Status: Acute (4) Hyponatremia: Status: Acute (5) Medical non-compliance: Status: Acute (6) Gram-positive cocci bacteremia: Status: Acute (7) Anemia, normocytic normochromic: Status: Acute Narrative A/P Narrative: Assessment and Plans: #1 clinical sepsis secondary to left foot plantar aspect diabetic foot ulcer with osteomyelitis of fifth metatarsal and proximal phalanx: Stays in inpatient PCU telemetry Consult account service associate Dr. Cortez, recommendations appreciated. 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 Hyponatremia: Serum osmolality, urine osmolality, random urine sodium level, TSH to investigate the nature of the hyponatremia Serum sodium 128 this morning. Saline lock, then CMP daily 3. Medical noncompliance: Continue to activities counselor patient on the importance of medical compliance 4. Anemia, normocytic normochromic: cbc w/ auto diff in the AM to trend H/H; transfuse pRBC if hemoglobin <7.0, active bleeding, or symptomatic 5. Gram positive cocci bacteremia: DDx: skin contamination Initial blood culture, growing S viridians Repeat blood culture on 12/24, no growth to date 2D echocardiogram, no endocardial vegetations seen Vancomycin Zosyn Tylenol PRN fever cbc w/ auto diff in the AM to trend WBC GI prophylaxis: Not currently indicated DVT prophylaxis: Heparin CODE STATUS: Full code Prognosis: Guarded Dispositions: Inpatient PCU telemetry Time Spent With Patient Time: Total time spent is greater than 50% in coordination of care (as documented) at patient's floor/unit and/or counseling patient: QUALITY VTE Deep Vein Thrombosis/Pulmonary Embolism Present on Admission: No
[2020-12-26] MEDS: PIPERACILLIN SODIUM/TAZOBACTAM 3.375 GM in DEXTROSE 5% IN WATER 50 ML IV SCH ×4 (00:10→17:26)
[2020-12-26] MEDS: 0.9 % SODIUM CHLORIDE 10 ML SYRINGE IV SCH ×5 (05:40→23:09)
[2020-12-26] MEDS: INSULIN LISPRO 1 UNIT/0.01 ML UNIT SQ SCH ×4 (06:27→21:10)
[2020-12-26 07:17] LABS: Basophils # (Auto) 0.08 K/mcL (0.00-0.30); Eosinophils # (Auto) 0.13 K/mcL (0.00-0.70); Eosinophils % (Auto) 1.7 % (0.0-7.0); Hematocrit 34.2 % (40.1-51.0); Lymphocytes # (Auto) 1.29 K/mcL (1.50-4.80); Lymphocytes % (Auto) 16.5 % (15.5-49.0); Mean Corpuscular HGB Conc 35.1 g/dL (31.0-36.0); Mean Platelet Volume 8.7 fL (7.4-10.4); Monocytes % (Auto) 7.7 % (1.0-12.0); Neutrophils % (Auto) 73.1 % (38.0-78.0); Platelet Count 135 K/mcL (140-440); Red Cell Distribution Width 14.6 % (11.5-14.5); WBC 7.8 K/mcL (4.5-11.0)
[2020-12-26 07:47] LABS: ALT/SGPT 11 U/L (<40); AST/SGOT 26 U/L (<40); Albumin 1.6 gm/dL (3.2-5.2); Albumin/Globulin Ratio 0.3 (1.0-2.3); Alkaline Phosphatase 55 U/L (39-117); Bilirubin,Total 0.9 mg/dL (0.1-1.0); Blood Urea Nitrogen 13 mg/dL (8-23); Calcium 8.5 mg/dL (8.6-10.4); Carbon Dioxide 24 mmol/L (22-30); Chloride 100 mmol/L (96-108); Globulin 5.1 gm/dL (2.2-3.7); Glomerular Filtration Rate 89; Glucose 84 mg/dL (70-105); Phosphorous 2.9 mg/dL (2.5-4.5)
[2020-12-26] MEDS: HEPARIN 5,000 UNIT/ML VIAL SQ SCH ×2 (08:48→21:10)
[2020-12-26] MEDS: DOCUSATE SODIUM 100 MG CAPSULE PO SCH ×2 (08:48→21:14)
[2020-12-26] MEDS: VANCOMYCIN 1,500 MG in 0.9 % SODIUM CHLORIDE 500 ML IV SCH ×2 (08:55→21:14)
[2020-12-26] MEDS ORDERED: SCOPOLAMINE 1 PATCH PATCH TOPICAL PRN (09:00)
--- NOTE | 2020-12-26 09:04 | Internal Med Progress Note ---
SUBJECTIVE Subjective Patient information: Note initiated : 12/26/20 at 9:01 am Service Date, if different from initiated Date: [] Patient: Ken Hook a 65 y/o M admitted on 12/22/20 for Failure to thrive, tachycardia, weakness. Chief Complaint: [diabetic foot with osteomyelitis] Interval history: History of present illness: Mr. Hook is a 65 year old M history of type 2 diabetes mellitus, medical noncompliance, presenting with 3 weeks history of left foot ulcer as well as general body weakness. There was no prior similar episode. Patient does not recall having any injury or trauma to his left foot. Patient is medically noncompliant and he is not taking any medications. Patient is complaining of 3-week history of left foot ulcer on the plantar aspect with associated severe constant sharp pain. He is also complaining of general body weakness to the point that he cannot get out of the bed for the last 3 weeks. He denies any associated fever chills or diaphoresis. There is no alleviating or exacerbating factors. No GI symptoms such as nausea vomiting diarrhea or constipation's. Due to his symptoms, he presented to our ED this evening for further evaluations. Vital signs significant for tachycardia with heart rate in the 1 teens, with the rest of the vital signs within normal limits. Labs significant for leukocytosis with WBC 14.8. Lactic acid pending. Procalcitonin pending. Serum sodium level 117, serum glucose lev el 167, bicarb 14, anion gap 18. Imagines results pending. 12/23: Afebrile overnight. Blood culture growing gram positive cocci in chain. Left foot CT: severe osteomyelitis in the fifth metatarsal and milder osteomyelitis in the proximal phalanx of the fifth toe. Fasting glucose 108. Serum sodium 125. WBC 13.3. c/o mild left foot pain. Denies fever or chills or sweating. 12/24: Afebrile overnight. Initial blood culture growing gram positive cocci in chain. Left foot CT: severe osteomyelitis in the fifth metatarsal and milder osteomyelitis in the proximal phalanx of the fifth toe. Fasting glucose 84. Serum sodium 126. WBC 8.2. Denies any left foot pain. Denies fever or chills or sweating. 12/25: Afebrile overnight. wbc 8.8. Serum sodium 128. Fasting glucose 75. Blood culture: S. Viridians, wound culture: P mirabilis. Denies any left foot pain. Denies any fever or chills or sweating. 12/26: Afebrile overnight. wbc 7.8. Serum sodium 128. Fasting glucose 84. Blood [id number]: S. Viridians, blood culture 12/24: gram positive cocci, wound culture: P mirabilis. Denies any left foot pain. Denies any fever or chills or sweating. Constitutional Vitals: Vital Signs Temp Pulse Resp BP Pulse Ox 35.9 C L 74 19 102/60 96 12/26/20 08:01 12/26/20 08:01 12/26/20 08:01 12/26/20 08:01 12/26/20 08:01 Period Temp Pulse Resp BP Sys/Jackson Pulse Ox Last 24 Hr 35.9 C-36.6 C 45-74 16-24 89-110/46-62 95-98 Intake and Output 12/25/20 12/26/20 12/26/20 21:59 05:59 13:59 Intake Total 630 790 50 Output Total 1425 1175 625 Balance -795 -385 -575 Weight 95.481 kg Intake & Output: Intake & Output 12/25/20 12/26/20 12/26/20 21:59 05:59 13:59 Intake Total 630 790 50 Output Total 1425 1175 625 Balance -795 -385 -575 Weight 95.481 kg Intake: Nourishment/Supplement quantity 120 (ml) IV 50 550 50 Zosyn 3.375 gm In Dextrose 5% 50 50 50 in Water 50 ml @ 100 mls/hr IV Q6H [facility] Rx#:[id number] Vancomycin 1,500 mg In Sodium 500 Chloride 0.9% 500 ml @ 333.3 mls/hr IV Q12H [facility] Rx#: [id number] Oral 460 240 Output: Urine Catheter Amount 1425 1175 625 Other: Meal Dinner Percent of Meal Consumed 75% Feeding Ability Independent Nourishment/Supplement name Glucerna Urine Appearance Clear Clear Clear Uretheral (Cunha) Clear Urine Color Dark Yellow Bright Yellow Bright Yellow Uretheral (Cunha) Bright Yellow Urine Odor Normal Normal General appearance: cooperative and no acute distress Head Head exam: Present atraumatic and normocephalic Eye Eye exam: Present EOMI and PERRL ENT ENT exam: Present mucous membranes moist, normal exam and normal external ear exam Neck Neck exam: Present normal inspection; Absent lymphadenopathy, tenderness and thyromegaly Respiratory Respiratory exam: Absent accessory muscle use, respiratory distress and wheezes Cardiovascular Cardiovascular exam: Present normal rate and rhythm; Absent JVD GI/Abdominal GI/Abdominal exam: Present normal bowel sounds and soft; Absent organomegaly and tenderness Rectal Rectal exam: Present deferred Extremities Exam Extremities exam: Present full ROM and normal capillary refill; Absent normal inspection and tenderness Additional comments: Left plantar foot ulcer covered with wound dressing Neurological Exam Neurological exam: Present alert, CN II-XII intact and oriented X3; Absent motor sensory deficit Psychiatric Psychiatric exam: Present normal affect and normal mood; Absent anxious and depressed Skin Skin exam: Present dry and intact OBJ DATA Labs CBC & Chem 7: 12/26/20 05:00 12/26/20 05:00 Labs: Abnormal Lab Results 12/26/20 12/26/20 12/25/20 05:00 05:00 05:03 WBC RBC 3.80 L Hgb 12.0 L Hct 34.2 L RDW 14.6 H Plt Count 135 L Neut % (Auto) Lymph % (Auto) Lymph # (Auto) 1.29 L Casey # (Auto) Absolute Neutrophils Sodium 128 L 128 L Anion Gap 4.0 L 4.0 L Creatinine 0.6 L Glucose Calcium 8.5 L 8.1 L Phosphorus Total Bilirubin 1.1 H Albumin 1.6 L 1.7 L Globulin 5.1 H 4.9 H Albumin/Globulin Ratio 0.3 L 0.3 L 12/25/20 12/24/20 12/24/20 05:03 05:29 05:29 WBC RBC 3.84 L 3.68 L Hgb 12.1 L 11.2 L Hct 35.0 L 34.5 L RDW 14.6 H Plt Count 108 L Neut % (Auto) Lymph % (Auto) Lymph # (Auto) 1.46 L 1.36 L Casey # (Auto) Absolute Neutrophils Sodium 126 L Anion Gap 5.0 L Creatinine 0.6 L Glucose Calcium 8.2 L Phosphorus 2.2 L Total Bilirubin Albumin 1.6 L Globulin 4.7 H Albumin/Globulin Ratio 0.3 L 12/23/20 12/23/20 07:55 05:00 WBC 13.3 H RBC 3.86 L Hgb 11.8 L Hct 35.2 L RDW 14.7 H Plt Count 122 L Neut % (Auto) 82.2 H Lymph % (Auto) 8.8 L Lymph # (Auto) 1.17 L Casey # (Auto) 1.15 H Absolute Neutrophils 10.94 H Sodium 125 L Anion Gap 5.0 L Creatinine 0.6 L Glucose 108 H Calcium 8.2 L Phosphorus Total Bilirubin Albumin Globulin Albumin/Globulin Ratio Meds: Medications Acetaminophen (Acetaminophen 325 Mg Tablet) 650 mg PO Q6HP PRN; Protocol PRN Reason: Per Pain Protocol/Fever > 101 Last Admin: 12/25/20 09:00 Dose: 650 mg Documented by: Albuterol/Ipratropium (Ipratropium/Albuterol 3 Ml Ampul.Neb) 3 ml NEB Q4HRT PRN PRN Reason: Wheezing Dextrose (Dextrose 50% 50 Ml Vial) 0 ml IV UD PRN PRN Reason: Hypoglycemia Diagnostic Test (Pha) (Accu-Chek 1 Each Strip) 1 each FS ACHS [facility] Last Admin: 12/26/20 06:27 Dose: 1 each Documented by: Docusate Sodium (Docusate Sodium 100 Mg Capsule) 100 mg PO BID [facility] Last Admin: 12/26/20 08:48 Dose: Not Given Documented by: Glucose (Dextrose 31 Gm Oral.Susp) 15 gm PO PRN PRN PRN Reason: Hypoglycemia Heparin Sodium (Porcine) (Heparin 5,000 Unit/Ml Vial) 5,000 unit SQ Q12 [facility] Last Admin: 12/26/20 08:48 Dose: Not Given Documented by: Piperacillin Sod/Tazobactam (Sod 3.375 gm/ Dextrose) 50 mls @ 100 mls/hr IV Q6H [facility]; Protocol Last Infusion: 12/26/20 07:13 Dose: Infused Documented by: Vancomycin HCl 1,500 mg/ (Sodium Chloride) 500 mls @ 333.3 mls/hr IV Q12H [facility] Last Admin: 12/26/20 08:55 Dose: 333 mls/hr Documented by: Ibuprofen (Ibuprofen 200 Mg Tablet) 800 mg PO DAILYP PRN PRN Reason: Inflammation Last Admin: 12/25/20 09:00 Dose: 800 mg Documented by: Insulin Human Lispro (Insulin Lispro 1 Unit/0.01 Ml Unit) 0 unit SQ ACHS [facility]; Protocol Last Admin: 12/26/20 06:27 Dose: Not Given Documented by: Lactulose (Lactulose 20 Gm/30 Ml Oral.Roxanne) 10 gm PO DAILYP PRN PRN Reason: Constipation Morphine Sulfate (Morphine 4 Mg/Ml Vial) 4 mg IV Q4HP PRN; Protocol PRN Reason: Per Pain Protocol Ondansetron HCl (Ondansetron 4 Mg/2 Ml Vial) 4 mg IV Q4HP PRN; Protocol PRN Reason: Nausea And Vomiting Oxycodone HCl (Oxycodone Hcl 5 Mg Tablet) 10 mg PO Q4HP PRN; Protocol PRN Reason: Per Pain Protocol Last Admin: 12/24/20 21:41 Dose: 10 mg Documented by: Scopolamine (Scopolamine 1 Patch Patch) 1 patch TOPICAL PREOP PRN PRN Reason: Nausea And Vomiting Stop: 12/26/20 17:00 Senna (Sennosides 1 Tablet) 2 tab PO HSP PRN PRN Reason: Constipation Sodium Chloride (0.9 % Sodium Chloride 10 Ml Syringe) 10 ml IV Q8 [facility] Last Admin: 12/26/20 05:40 Dose: 10 ml Documented by: Vancomycin HCl (Vancomycin Per Pharmacy) 1 order IV UD [facility]; Protocol A/P Assessment and plan (1) Sepsis: Status: Acute (2) Diabetic foot ulcer: Status: Acute (3) T2DM (type 2 diabetes mellitus): Status: Acute (4) Hyponatremia: Status: Acute (5) Medical non-compliance: Status: Acute (6) Gram-positive cocci bacteremia: Status: Acute (7) Anemia, normocytic normochromic: Status: Acute Narrative A/P Narrative: Assessment and Plans: #1 clinical sepsis secondary to left foot plantar aspect diabetic foot ulcer with osteomyelitis of fifth metatarsal and proximal phalanx: Stays in inpatient PCU telemetry Consult courtroom deputy Dr. Cortez, recommendations appreciated. Plan to do surgery (partial fifth toe amputation) today @1000 Serial lactic acid Procalcitonin Initial blood culture, growing S viridians blood culture 12/24: gram positive cocci Wound culture, growing P mirabilis CBC with auto differential in the morning to trend WBC Vancomycin Zosyn Tylenol as needed fever Oxycodone as needed moderate pain Morphine IV as needed severe pain Physical therapy evaluation and treatment Occupational Therapy evaluation and treatment Hemoglobin A1c Hold any oral hypoglycemics Low-dose correctional scale insulin is suggested Accu-Chek AC at bedtime Hypoglycemia protocol Diabetic diet family educator 2. Hyponatremia: Serum osmolality, urine osmolality, random urine sodium level, TSH to investigate the nature of the hyponatremia Serum sodium 128 this morning. Saline lock, then CMP daily 3. Medical noncompliance: Continue to housing counselor patient on the importance of medical compliance 4. Anemia, normocytic normochromic: cbc w/ auto diff in the AM to trend H/H; transfuse pRBC if hemoglobin <7.0, active bleeding, or symptomatic 5. Gram positive cocci bacteremia: DDx: skin contamination Blood /25: S. Viridians blood culture 12/24: gram positive cocci 2D echocardiogram, no endocardial vegetations seen Vancomycin Zosyn Tylenol PRN fever cbc w/ auto diff in the AM to trend WBC GI prophylaxis: Not currently indicated DVT prophylaxis: Heparin CODE STATUS: Full code Prognosis: Guarded Dispositions: Inpatient PCU telemetry Time Spent With Patient Time: Total time spent is greater than 50% in coordination of care (as documented) at patient's floor/unit and/or counseling patient: QUALITY VTE Deep Vein Thrombosis/Pulmonary Embolism Present on Admission: No
[2020-12-26] MEDS ORDERED: GLYCOPYRROLATE 0.2 MG/ML VIAL IV ONE (09:56)
[2020-12-26] MEDS ORDERED: DEXAMETHASONE 10 MG/ML VIAL ONE (09:56)
[2020-12-26] MEDS ORDERED: LIDOCAINE HCL/PF 100 MG/5 ML SYRINGE IV ONE (09:56)
[2020-12-26] MEDS ORDERED: KETAMINE 50 MG/ML Syringe (ANEST) IV ONE (09:56)
[2020-12-26] MEDS ORDERED: ETOMIDATE 20 MG/10 ML VIAL IV ONE (09:56)
[2020-12-26] MEDS ORDERED: PHENYLephrine 1 MG/10 ML SYRINGE (ANEST) ONE (09:56)
[2020-12-26] MEDS ORDERED: fentaNYL 100 MCG/2 ML VIAL IV ONE (09:56)
[2020-12-26] MEDS ORDERED: PROPOFOL 200 MG/20 ML VIAL IV ONE (09:56)
[2020-12-26] MEDS ORDERED: ONDANSETRON 4 MG/2 ML VIAL ONE (09:56)
[2020-12-26] MEDS ORDERED: MIDAZOLAM 2 MG/2 ML VIAL ONE (09:56)
[2020-12-26] MEDS ORDERED: IPRATROPIUM/ALBUTEROL 3 ML AMPUL.NEB NEB PRN (10:22)
--- NOTE | 2020-12-26 10:40 | EKG ---
[facility] Test Date: 2020-12-24 Pat Name: Ken Hook Department: ICU Room: 118 Gender: Male Filling Machine Tender: : 1955 Requested By: [place] Cortez Order Number: [id number] Reading MD: Luke Byrd Measurements Intervals [place] Rate: 71 P: 73 HI: 152 QRS: 23 QRSD: 108 T: 36 QT: 444 QTc: 483 Interpretive Statements SINUS RHYTHM PROBABLE LEFT ATRIAL ABNORMALITY T wave inversion in V3 Electronically Signed On 12-26-2020 10:39:46 PDT by Luke Byrd /store/M0/[id number]/ecg/[id number].pdf
--- NOTE | 2020-12-26 10:42 | Brief Operative Note ---
Brief Operative Note Date of procedure: 12/26/20 Pre-op diagnosis: left foot fifth toe and metatarsal osteomyelitis Post-op diagnosis: same Procedure: 1. left fifth metatarsal amputation 2. Left fifth toe amputation 3. Left foot incision and drainage Grafts/Implants: No Anesthesia: GETA Complications: none Surgeon: [place] Cortez Estimated blood loss (cc): 40 Tourniquet Time (Minutes): 20 Specimens Removed/Pathology: other (fifth metatarsal, bone biopsy for culuture and pathology, fifth toe) Condition: other (fair) Disposition: floor
--- NOTE | 2020-12-26 11:21 | Operative Note ---
DATE OF OPERATION: 12/26/2020 PREOPERATIVE DIAGNOSES: Left foot fifth toe and metatarsal osteomyelitis. POSTOPERATIVE DIAGNOSES: Left foot fifth toe and metatarsal osteomyelitis. PROCEDURE: 1. Left fifth metatarsal amputation. 2. Left fifth toe amputation. 3. Left foot incision and drainage. SURGEON: [place] Cortez DPM. IMPLANTS: None. ANESTHESIA: GETA. COMPLICATIONS: None. BLOOD LOSS: 40 mL. TOURNIQUET TIME: 20 minutes. SPECIMENS: Fifth metatarsal bone biopsy for culture and pathology and fifth toe. CONDITION: Fair. DISPOSITION: Floor. PROCEDURE IN DETAIL: The patient was brought to the operating room and placed on the operating table in supine position. The left lower extremity was scrubbed, prepped and draped in the usual aseptic fashion. Esmarch applied. Pneumatic thigh tourniquet inflated to 250 mmHg. Procedure 1: Left fifth metatarsal amputation. Through a 3 cm incision, left fifth metatarsal was identified and dissected. Full-thickness incision was created. There was also abundant purulent drainage upon incision. This was cultured. The fifth metatarsal was dissected from its base and a bone cutter was used at the proximal centimeter of the metatarsal leaving the attachment of the peroneus brevis to the styloid process. The metatarsal was then sent for bone culture. A small specimen was taken for bone culture and sent in a culture tube and the rest was used for bone under pathological assessment. Area was irrigated with pulse lavage and packed with 1 gram of vancomycin powder. Procedure 2: Left fifth toe amputation. A fishmouth incision was created around the infected fifth toe of the left foot. This was done full thickness. This was irrigated after disarticulating the toe from its proximal attachments. This was sent as well for pathological assessment. Closure was performed with 3-0 Vicryl and 3-0 nylon. These areas were irrigated. Procedure 3: Left foot incision and drainage. There was an abscess on the lateral aspect of the foot and incision and drainage was performed. This was done with a 3 liter bag of normal saline under pulse lavage and with the remaining gram of vancomycin powder packed to this area. Xeroform, 4 x 4 gauze, Kerlix, and Jeremy wrap were then applied. The patient tolerated the procedure and anesthesia well and will be transferred back to the floor when stabilized in PACU. AMBER:ck Job ID: [id number] Doc ID: [id number] [place] Cortez DPM
[2020-12-26] MEDS: oxyCODONE HCL 5 MG TABLET PO PRN ×2 (13:31→17:25)
[2020-12-26] MEDS: IBUPROFEN 200 MG TABLET PO PRN (15:38)
[2020-12-26] MEDS: ACETAMINOPHEN 325 MG TABLET PO PRN (15:38)
[2020-12-27] MEDS: 0.9 % SODIUM CHLORIDE 10 ML SYRINGE IV SCH ×4 (00:25→20:45)
[2020-12-27] MEDS: PIPERACILLIN SODIUM/TAZOBACTAM 3.375 GM in DEXTROSE 5% IN WATER 50 ML IV SCH ×4 (00:26→17:28)
[2020-12-27] MEDS: ACETAMINOPHEN 325 MG TABLET PO PRN (04:23)
[2020-12-27 06:42] LABS: Basophils # (Auto) 0.07 K/mcL (0.00-0.30); Basophils % (Auto) 0.7 % (0.0-2.0); Eosinophils # (Auto) 0.09 K/mcL (0.00-0.70); Eosinophils % (Auto) 0.9 % (0.0-7.0); Hematocrit 33.2 % (40.1-51.0); Hemoglobin 11.3 g/dL (13.7-17.5); Lymphocytes # (Auto) 1.52 K/mcL (1.50-4.80); Lymphocytes % (Auto) 15.4 % (15.5-49.0); Mean Cell Volume 92.2 fL (80.0-100.0); Mean Platelet Volume 8.8 fL (7.4-10.4); Monocytes # (Auto) 0.74 K/mcL (0.10-0.90); Monocytes % (Auto) 7.5 % (1.0-12.0); Neutrophils % (Auto) 75.5 % (38.0-78.0); Platelet Count 130 K/mcL (140-440); Red Cell Distribution Width 14.6 % (11.5-14.5); WBC 9.9 K/mcL (4.5-11.0)
[2020-12-27] MEDS: INSULIN LISPRO 1 UNIT/0.01 ML UNIT SQ SCH ×4 (07:31→20:44)
[2020-12-27 07:43] LABS: ALT/SGPT 11 U/L (<40); AST/SGOT 22 U/L (<40); Albumin 1.6 gm/dL (3.2-5.2); Albumin/Globulin Ratio 0.3 (1.0-2.3); Alkaline Phosphatase 49 U/L (39-117); Bilirubin,Direct 0.4 mg/dL (<0.3); Bilirubin,Total 0.8 mg/dL (0.1-1.0); Blood Urea Nitrogen 15 mg/dL (8-23); Calcium 8.1 mg/dL (8.6-10.4); Carbon Dioxide 23 mmol/L (22-30); Chloride 101 mmol/L (96-108); Globulin 4.8 gm/dL (2.2-3.7); Glomerular Filtration Rate 79; Glucose 98 mg/dL (70-105); Lactate Dehydrogenase 189 U/L (135-225); Phosphorous 3.3 mg/dL (2.5-4.5); Triglycerides 49 mg/dL (<150); Uric Acid 3.5 mg/dL (2.5-8.0)
[2020-12-27] MEDS: VANCOMYCIN 1,500 MG in 0.9 % SODIUM CHLORIDE 500 ML IV SCH (08:57)
[2020-12-27] MEDS: HEPARIN 5,000 UNIT/ML VIAL SQ SCH ×2 (09:20→21:04)
[2020-12-27] MEDS: DOCUSATE SODIUM 100 MG CAPSULE PO SCH ×2 (09:20→21:05)
[2020-12-27] MEDS ORDERED: SENNOSIDES 1 TABLET PO PRN (10:48)
[2020-12-27] MEDS ORDERED: IPRATROPIUM/ALBUTEROL 3 ML AMPUL.NEB NEB PRN (10:48)
[2020-12-27] MEDS ORDERED: DEXTROSE 31 GM ORAL.SUSP PO PRN (10:48)
[2020-12-27] MEDS ORDERED: DEXTROSE 50% 50 ML VIAL IV PRN (10:48)
[2020-12-27] MEDS ORDERED: ACETAMINOPHEN 325 MG TABLET PO PRN (10:48)
[2020-12-27] MEDS ORDERED: morphine 4 MG/ML VIAL IV PRN (10:48)
[2020-12-27] MEDS ORDERED: ONDANSETRON 4 MG/2 ML VIAL IV PRN (10:48)
[2020-12-27] MEDS ORDERED: IBUPROFEN 200 MG TABLET PO PRN (10:48)
[2020-12-27] MEDS ORDERED: LACTULOSE 20 GM/30 ML ORAL.SOL PO PRN (10:48)
--- NOTE | 2020-12-27 19:35 | Internal Med Progress Note ---
SUBJECTIVE Subjective Patient information: Note initiated : 12/27/20 at 7:35 pm Service Date, if different from initiated Date: [] Patient: Ken Hook a 65 y/o M admitted on 12/22/20 for Failure to thrive, tachycardia, weakness. Chief Complaint: f/u diabetic foot infection Interval history: Mr. Hook is a 65 year old M history of type 2 diabetes m ellitus, medical noncompliance, presenting with 3 weeks history of left foot ulcer as well as general body weakness. There was no prior similar episode. Patient does not recall having any injury or trauma to his left foot. Patient is medically noncompliant and he is not taking any medications. Patient is complaining of 3-week history of left foot ulcer on the plantar aspect with associated severe constant sharp pain. He is also complaining of general body weakness to the point that he cannot get out of the bed for the last 3 weeks. He denies any associated fever chills or diaphoresis. There is no alleviating or exacerbating factors. No GI symptoms such as nausea vomiting diarrhea or constipation. Due to his symptoms, he presented to our ED this evening for further evaluations. Vital signs significant for tachycardia with heart rate in the 110's, with the rest of the vital signs within normal limits. Labs significant for leukocytosis with WBC 14.8. Lactic acid pending. Procalcitonin pending. Serum sodium level 117, serum glucose level 167, bicarb 14, anion gap 18. Imagines results pending. 12/23: Afebrile overnight. Blood culture growing gram positive cocci in chains. Left foot CT: severe osteomyelitis in the fifth metatarsal and milder osteomyelitis in the proximal phalanx of the fifth toe. Fasting glucose 108. Serum sodium 125. WBC 13.3. c/o mild left foot pain. Denies fever or chills or sweating. 12/24: Afebrile overnight. Initial blood culture growing gram positive cocci in chains. Fasting glucose 84. Serum sodium 126. WBC 8.2. Denies any left foot pain. Denies fever or chills or sweating. 12/25: Afebrile overnight. wbc 8.8. Serum sodium 128. Fasting glucose 75. Blood culture: S. Viridians, wound culture: P mirabilis. Denies any left foot pain. Denies any fever or chills or sweating. 12/26: Afebrile overnight. wbc 7.8. Serum sodium 128. Fasting glucose 84. Blood [id number]/25: S. Viridians, blood culture 12/24: gram positive cocci, wound culture: P mirabilis. Denies any left foot pain. Denies any fever or chills or sweating. 12/27: Status post left fifth toe and metatarsal amputation yesterday. Tolerated procedure well. Blood culture from 12/24 still with gram-positive cocci in chains, identification not yet reported. Repeat blood cultures drawn this morning. Echocardiogram report reviewed, no obvious vegetations. Deep wound and bone cultures taken intraoperatively are pending. Constitutional Vitals: Vital Signs Temp Pulse Resp BP Pulse Ox 97.8 F 70 16 108/61 96 12/27/20 18:35 12/27/20 18:35 12/27/20 18:35 12/27/20 18:35 12/27/20 18:35 Period Temp Pulse Resp BP Sys/Jackson Pulse Ox Last 24 Hr 96.9 F-98.1 F 61-78 13-22 90-126/52-75 94-99 Intake and Output 12/27/20 12/27/20 12/27/20 05:59 13:59 21:59 Intake Total 1150 940 50 Output Total 550 300 Balance 600 940 -250 Weight 207 lb 8 oz 218 lb Patient Weight 12/28/20 05:59 Weight 218 lb Intake & Output: Intake & Output 12/27/20 12/27/20 12/27/20 05:59 13:59 21:59 Intake Total 1150 940 50 Output Total 550 300 Balance 600 940 -250 Weight 207 lb 8 oz 218 lb Intake: IV 550 600 50 Zosyn 3.375 gm In Dextrose 5% 50 100 50 in Water 50 ml @ 100 mls/hr IV Q6H [facility] Rx#:[id number] Vancomycin 1,500 mg In Sodium 500 500 Chloride 0.9% 500 ml @ 333.3 mls/hr IV Q12H [facility] Rx#: [id number] Oral 600 340 Output: Urine Catheter Amount 550 Void Amount 300 Other: Meal 2 Bonita ice cream Breakfast Percent of Meal Consumed 100% 100% Feeding Ability Independent Urine Appearance Clear Clear Clear Uretheral (Cunha) Clear Urine Color Dark Yellow Dark Yellow Bright Yellow Uretheral (Cunha) Dark Lexus Urine Odor Normal Strong GENERAL: Sitting up in chair at bedside in no acute distress RESPIRATORY: Clear bilaterally CARDIOVASCULAR: Regular rate and rhythm with 2/6 systolic murmur, loudest at the apex ABDOMEN: Soft, nontender EXTREMITIES: No edema NEURO: Alert, oriented to person, place and situation OBJ DATA Labs CBC & Chem 7: 12/27/20 05:11 12/27/20 05:11 Labs: Abnormal Lab Results 12/27/20 12/27/20 12/26/20 05:11 05:11 05:00 RBC 3.60 L Hgb 11.3 L Hct 33.2 L RDW 14.6 H Plt Count 130 L Lymph % (Auto) 15.4 L Lymph # (Auto) Sodium 130 L 128 L Anion Gap 6.0 L 4.0 L Creatinine Calcium 8.1 L 8.5 L Total Bilirubin Direct Bilirubin 0.4 H Albumin 1.6 L 1.6 L Globulin 4.8 H 5.1 H Albumin/Globulin Ratio 0.3 L 0.3 L 12/26/20 12/25/20 12/25/20 05:00 05:03 05:03 RBC 3.80 L 3.84 L Hgb 12.0 L 12.1 L Hct 34.2 L 35.0 L RDW 14.6 H Plt Count 135 L Lymph % (Auto) Lymph # (Auto) 1.29 L 1.46 L Sodium 128 L Anion Gap 4.0 L Creatinine 0.6 L Calcium 8.1 L Total Bilirubin 1.1 H Direct Bilirubin Albumin 1.7 L Globulin 4.9 H Albumin/Globulin Ratio 0.3 L Microbiology 12/26/20 10:10 Anaerobic Culture - Preliminary Bone 12/24/20 05:19 Blood Culture - Preliminary Blood 12/24/20 05:25 Blood Culture - Preliminary Blood Gram positive cocci 12/23/20 10:30 Gram Stain - Final Foot - Left Wound Culture - Final Proteus mirabilis 12/22/20 18:20 Blood Culture - Preliminary Blood Streptococcus viridans 12/22/20 18:00 Blood Culture - Preliminary Blood Streptococcus viridans 12/22/20 19:00 Urine Culture - Final Urine - Catheterized 12/23/20 10:36 MRSA (PCR) - Final Nose 12/22/20 21:59 MRSA Screen - Final Nose 12/22/20 20:32 SARS-CoV-2 by PCR ([facility]) - Final Nasopharynx Meds: Medications Acetaminophen (Acetaminophen 325 Mg Tablet) 650 mg PO Q6HP PRN; Protocol PRN Reason: Per Pain Protocol/Fever > 101 Last Admin: 12/27/20 18:56 Dose: 650 mg Documented by: Albuterol/Ipratropium (Ipratropium/Albuterol 3 Ml Ampul.Neb) 3 ml NEB Q4HRT PRN PRN Reason: Wheezing Dextrose (Dextrose 50% 50 Ml Vial) 0 ml IV UD PRN PRN Reason: Hypoglycemia Diagnostic Test (Pha) (Accu-Chek 1 Each Strip) 1 each FS ACHS [facility] Last Admin: 12/27/20 16:46 Dose: 1 each Documented by: Docusate Sodium (Docusate Sodium 100 Mg Capsule) 100 mg PO BID [facility] Glucose (Dextrose 31 Gm Oral.Susp) 15 gm PO PRN PRN PRN Reason: Hypoglycemia Heparin Sodium (Porcine) (Heparin 5,000 Unit/Ml Vial) 5,000 unit SQ Q12 [facility] Piperacillin Sod/Tazobactam (Sod 3.375 gm/ Dextrose) 50 mls @ 100 mls/hr IV Q6H [facility]; Protocol Last Infusion: 12/27/20 18:07 Dose: Infused Documented by: Ibuprofen (Ibuprofen 200 Mg Tablet) 800 mg PO DAILYP PRN PRN Reason: Inflammation Insulin Human Lispro (Insulin Lispro 1 Unit/0.01 Ml Unit) 0 unit SQ ACHS [facility]; Protocol Last Admin: 12/27/20 16:47 Dose: Not Given Documented by: Lactulose (Lactulose 20 Gm/30 Ml Oral.Roxanne) 10 gm PO DAILYP PRN PRN Reason: Constipation Morphine Sulfate (Morphine 4 Mg/Ml Vial) 4 mg IV Q4HP PRN; Protocol PRN Reason: Per Pain Protocol Ondansetron HCl (Ondansetron 4 Mg/2 Ml Vial) 4 mg IV Q4HP PRN; Protocol PRN Reason: Nausea And Vomiting Oxycodone HCl (Oxycodone Hcl 5 Mg Tablet) 10 mg PO Q4HP PRN; Protocol PRN Reason: Per Pain Protocol Senna (Sennosides 1 Tablet) 2 tab PO HSP PRN PRN Reason: Constipation Sodium Chloride (0.9 % Sodium Chloride 10 Ml Syringe) 10 ml IV Q8 [facility] Last Admin: 12/27/20 13:14 Dose: 10 ml Documented by: A/P Narrative A/P Narrative: Assessment: Sepsis secondary to left foot plantar aspect diabetic foot ulcer with osteomyelitis of fifth metatarsal and proximal phalanx -Consulted deputy harbormaster Dr. Cortez -Status post fifth toe and metatarsal amputation 12/26 -Proteus mirabilis on initial wound culture -Intraoperative cultures pending 12/27 -On vancomycin and piperacillin/tazobactam -Blood culture from admission with strep viridans -Repeat blood culture from 12/24 with gram-positive cocci in chains Type 2 DM -Had not been taking medications per report at admission -However Hemoglobin A1c 5.2% at admission -On low-dose sliding scale insulin with Accu-Cheks -Diabetic diet Strep viridans bacteremia -Concern for bloodstream infection as both 12/22 and 12/24 cultures with gram- positive cocci (presumptive strep viridans in 12/24) -Echocardiogram without vegetation -Repeat blood cultures 12/26 pending -If persistent positive, may need ZAC -On vancomycin and piperacillin/tazobactam Hyponatremia -Stable in the [id number] range -Sodium 130 on 12/27 Medical noncompliance: -Continue to college admissions counselor patient on the importance of medical compliance Anemia, normocytic normochromic -Monitoring Plan: * Continue with piperacillin/tazobactam * Follow-up intraoperative cultures * Follow-up 12/26 blood cultures * Follow-up final identification 12/24 blood culture * Discontinue vancomycin without MRSA on any culture * Continue to follow CBC and white count * Continue with PT and OT * Continue with diabetic regimen Time Spent With Patient Time: Total time spent is greater than 50% in coordination of care (as documented) at patient's floor/unit and/or counseling patient: Total time spent with greater than 50% in coordination of care (as documented) at patient's floor/unit and/or counseling patient:: 25 - 35 minutes QUALITY VTE Deep Vein Thrombosis/Pulmonary Embolism Present on Admission: No
[2020-12-28] MEDS: PIPERACILLIN SODIUM/TAZOBACTAM 3.375 GM in DEXTROSE 5% IN WATER 50 ML IV SCH ×4 (00:24→17:56)
[2020-12-28] MEDS: oxyCODONE HCL 5 MG TABLET PO PRN ×3 (00:29→20:38)
[2020-12-28] MEDS: 0.9 % SODIUM CHLORIDE 10 ML SYRINGE IV SCH ×3 (05:57→20:39)
[2020-12-28 06:53] LABS: Basophils % (Auto) 1.1 % (0.0-2.0); Eosinophils # (Auto) 0.26 K/mcL (0.00-0.70); Eosinophils % (Auto) 2.9 % (0.0-7.0); Hematocrit 34.9 % (40.1-51.0); Hemoglobin 11.4 g/dL (13.7-17.5); Lymphocytes # (Auto) 1.59 K/mcL (1.50-4.80); Lymphocytes % (Auto) 17.5 % (15.5-49.0); Mean Cell Volume 92.8 fL (80.0-100.0); Mean Corpuscular HGB Conc 32.7 g/dL (31.0-36.0); Mean Platelet Volume 8.5 fL (7.4-10.4); Monocytes # (Auto) 0.56 K/mcL (0.10-0.90); Monocytes % (Auto) 6.2 % (1.0-12.0); Neutrophils % (Auto) 72.3 % (38.0-78.0); Platelet Count 130 K/mcL (140-440); RBC 3.76 M/mcL (4.63-6.08); WBC 9.1 K/mcL (4.5-11.0)
[2020-12-28 07:10] LABS: Blood Urea Nitrogen 14 mg/dL (8-23); Calcium 8.3 mg/dL (8.6-10.4); Carbon Dioxide 23 mmol/L (22-30); Chloride 101 mmol/L (96-108); Glomerular Filtration Rate 70; Glucose 85 mg/dL (70-105)
[2020-12-28] MEDS: INSULIN LISPRO 1 UNIT/0.01 ML UNIT SQ SCH ×4 (07:18→20:45)
--- NOTE | 2020-12-28 08:25 | Internal Med Progress Note ---
SUBJECTIVE Subjective Patient information: Note initiated : 12/28/20 at 8:25 am Service Date, if different from initiated Date: [] Patient: Ken Hook a 65 y/o M admitted on 12/22/20 for Failure to thrive, tachycardia, weakness. Chief Complaint: f/u diabetic foot infection Interval history: Mr. Hook is a 65 year old M history of type 2 diabetes m ellitus, medical noncompliance, presenting with 3 weeks history of left foot ulcer as well as general body weakness. There was no prior similar episode. Patient does not recall having any injury or trauma to his left foot. Patient is medically noncompliant and he is not taking any medications. Patient is complaining of 3-week history of left foot ulcer on the plantar aspect with associated severe constant sharp pain. He is also complaining of general body weakness to the point that he cannot get out of the bed for the last 3 weeks. He denies any associated fever chills or diaphoresis. There is no alleviating or exacerbating factors. No GI symptoms such as nausea vomiting diarrhea or constipation. Due to his symptoms, he presented to our ED this evening for further evaluations. Vital signs significant for tachycardia with heart rate in the 110's, with the rest of the vital signs within normal limits. Labs significant for leukocytosis with WBC 14.8. Lactic acid pending. Procalcitonin pending. Serum sodium level 117, serum glucose level 167, bicarb 14, anion gap 18. Imagines results pending. 12/23: Afebrile overnight. Blood culture growing gram positive cocci in chains. Left foot CT: severe osteomyelitis in the fifth metatarsal and milder osteomyelitis in the proximal phalanx of the fifth toe. Fasting glucose 108. Serum sodium 125. WBC 13.3. c/o mild left foot pain. Denies fever or chills or sweating. 12/24: Afebrile overnight. Initial blood culture growing gram positive cocci in chains. Fasting glucose 84. Serum sodium 126. WBC 8.2. Denies any left foot pain. Denies fever or chills or sweating. 12/25: Afebrile overnight. wbc 8.8. Serum sodium 128. Fasting glucose 75. Blood culture: S. Viridians, wound culture: P mirabilis. Denies any left foot pain. Denies any fever or chills or sweating. 12/26: Afebrile overnight. wbc 7.8. Serum sodium 128. Fasting glucose 84. Blood [id number]: S. Viridians, blood culture 12/24: gram positive cocci, wound culture: P mirabilis. Denies any left foot pain. Denies any fever or chills or sweating. 12/27: Status post left fifth toe and metatarsal amputation yesterday. Tolerated procedure well. Blood culture from 12/24 still with gram-positive cocci in chains, identification not yet reported. Repeat blood cultures drawn this morning. Echocardiogram report reviewed, no obvious vegetations. Deep wound and bone cultures taken intraoperatively are pending. 12/28: No new complaints this morning. Blood cultures from 12/24 still without speciation, just reporting gram-positive cocci in chains. Cultures from 12/27 without growth. Deep wound and bone cultures from intraoperative samples are still pending. Constitutional Vitals: Vital Signs Temp Pulse Resp BP Pulse Ox 98.5 F 69 16 101/57 94 12/28/20 03:13 12/28/20 03:13 12/28/20 03:13 12/28/20 03:13 12/28/20 03:13 Period Temp Pulse Resp BP Sys/Jackson Pulse Ox Last 24 Hr 96.9 F-98.5 F 69-74 16-18 101-126/57-72 94-99 Intake and Output 12/27/20 12/28/20 12/28/20 21:59 05:59 13:59 Intake Total 250 270 50 Output Total 500 650 Balance -250 -380 50 Weight 218 lb Intake & Output: Intake & Output 12/27/20 12/28/20 12/28/20 21:59 05:59 13:59 Intake Total 250 270 50 Output Total 500 650 Balance -250 -380 50 Weight 218 lb Intake: IV 50 50 50 Zosyn 3.375 gm In Dextrose 5% 50 50 50 in Water 50 ml @ 100 mls/hr IV Q6H [facility] Rx#:[id number] Oral 200 220 Output: Void Amount 500 650 Other: Urine Appearance Clear Clear Urine Color Dark Yellow Dark Yellow Urine Odor Normal GENERAL: Laying in bed no acute distress RESPIRATORY: Clear CARDIOVASCULAR: Regular rate and rhythm with 2/6 systolic murmur in precordium, loudest at apex ABDOMEN: Soft, nontender EXTREMITIES: Operative dressings intact and dry NEURO: Alert, oriented to person, place and situation, mild generalized weakness OBJ DATA Labs CBC & Chem 7: 12/28/20 05:36 12/28/20 05:36 Labs: Abnormal Lab Results 12/28/20 12/28/20 12/27/20 05:36 05:36 05:11 RBC 3.76 L Hgb 11.4 L Hct 34.9 L RDW 15.0 H Plt Count 130 L Lymph % (Auto) Lymph # (Auto) Sodium 130 L 130 L Anion Gap 6.0 L 6.0 L Calcium 8.3 L 8.1 L Direct Bilirubin 0.4 H Albumin 1.6 L Globulin 4.8 H Albumin/Globulin Ratio 0.3 L 12/27/20 12/26/20 12/26/20 05:11 05:00 05:00 RBC 3.60 L 3.80 L Hgb 11.3 L 12.0 L Hct 33.2 L 34.2 L RDW 14.6 H 14.6 H Plt Count 130 L 135 L Lymph % (Auto) 15.4 L Lymph # (Auto) 1.29 L Sodium 128 L Anion Gap 4.0 L Calcium 8.5 L Direct Bilirubin Albumin 1.6 L Globulin 5.1 H Albumin/Globulin Ratio 0.3 L Meds: Medications Acetaminophen (Acetaminophen 325 Mg Tablet) 650 mg PO Q6HP PRN; Protocol PRN Reason: Per Pain Protocol/Fever > 101 Last Admin: 12/27/20 18:56 Dose: 650 mg Documented by: Albuterol/Ipratropium (Ipratropium/Albuterol 3 Ml Ampul.Neb) 3 ml NEB Q4HRT PRN PRN Reason: Wheezing Dextrose (Dextrose 50% 50 Ml Vial) 0 ml IV UD PRN PRN Reason: Hypoglycemia Diagnostic Test (Pha) (Accu-Chek 1 Each Strip) 1 each FS ACHS [facility] Last Admin: 12/28/20 07:18 Dose: 1 each Documented by: Docusate Sodium (Docusate Sodium 100 Mg Capsule) 100 mg PO BID [facility] Last Admin: 12/27/20 21:05 Dose: 100 mg Documented by: Glucose (Dextrose 31 Gm Oral.Susp) 15 gm PO PRN PRN PRN Reason: Hypoglycemia Heparin Sodium (Porcine) (Heparin 5,000 Unit/Ml Vial) 5,000 unit SQ Q12 [facility] Last Admin: 12/27/20 21:04 Dose: 5,000 unit Documented by: Piperacillin Sod/Tazobactam (Sod 3.375 gm/ Dextrose) 50 mls @ 100 mls/hr IV Q6H [facility]; Protocol Last Infusion: 12/28/20 06:35 Dose: Infused Documented by: Ibuprofen (Ibuprofen 200 Mg Tablet) 800 mg PO DAILYP PRN PRN Reason: Inflammation Insulin Human Lispro (Insulin Lispro 1 Unit/0.01 Ml Unit) 0 unit SQ ACHS [facility]; Protocol Last Admin: 12/28/20 07:18 Dose: Not Given Documented by: Lactulose (Lactulose 20 Gm/30 Ml Oral.Roxanne) 10 gm PO DAILYP PRN PRN Reason: Constipation Morphine Sulfate (Morphine 4 Mg/Ml Vial) 4 mg IV Q4HP PRN; Protocol PRN Reason: Per Pain Protocol Ondansetron HCl (Ondansetron 4 Mg/2 Ml Vial) 4 mg IV Q4HP PRN; Protocol PRN Reason: Nausea And Vomiting Oxycodone HCl (Oxycodone Hcl 5 Mg Tablet) 10 mg PO Q4HP PRN; Protocol PRN Reason: Per Pain Protocol Last Admin: 12/28/20 00:29 Dose: 10 mg Documented by: Senna (Sennosides 1 Tablet) 2 tab PO HSP PRN PRN Reason: Constipation Sodium Chloride (0.9 % Sodium Chloride 10 Ml Syringe) 10 ml IV Q8 [facility] Last Admin: 12/28/20 05:57 Dose: 10 ml Documented by: A/P Narrative A/P Narrative: Assessment: Sepsis secondary to left foot plantar aspect diabetic foot ulcer with osteomyelitis of fifth metatarsal and proximal phalanx -Consulted senior staff accountant Dr. Cortez -Status post fifth toe and metatarsal amputation 12/26 -Proteus mirabilis on initial wound culture -Intraoperative cultures pending 12/27 -Initially on vancomycin and piperacillin/tazobactam, vancomycin stopped 12/27 -Blood culture from admission with strep viridans -Repeat blood culture from 12/24 with gram-positive cocci in chains -Repeat blood culture 12/27 NGTD Type 2 DM -Had not been taking medications per report at admission -However Hemoglobin A1c 5.2% at admission -On low-dose sliding scale insulin with Accu-Cheks -Diabetic diet Strep viridans bacteremia -Concern for bloodstream infection as both 12/22 and 12/24 cultures with gram- positive cocci (presumptive strep viridans in 12/24) -Echocardiogram without vegetation -Repeat blood cultures 12/27 without growth -If persistent positive, may need ZAC -On vancomycin and piperacillin/tazobactam initially, vancomycin stopped 12/27 Hyponatremia -Stable in the [id number] range -Sodium 130 on 12/27 Medical noncompliance: -Continue to savings counselor patient on the importance of medical compliance Anemia, normocytic normochromic -Monitoring Plan: * Continue with piperacillin/tazobactam * Follow-up intraoperative cultures, if no residual osteomyelitis may not need prolonged IV antibiotics * Follow-up 12/27 blood cultures * Follow-up final identification 12/24 blood culture * Continue to follow CBC and white count * Continue with PT and OT * Continue with diabetic regimen Time Spent With Patient Time: Total time spent is greater than 50% in coordination of care (as documented) at patient's floor/unit and/or counseling patient: Total time spent with greater than 50% in coordination of care (as documented) at patient's floor/unit and/or counseling patient:: 25 - 35 minutes QUALITY VTE Deep Vein Thrombosis/Pulmonary Embolism Present on Admission: No
[2020-12-28] MEDS: DOCUSATE SODIUM 100 MG CAPSULE PO SCH ×2 (09:34→20:39)
[2020-12-28] MEDS: HEPARIN 5,000 UNIT/ML VIAL SQ SCH ×2 (09:34→20:39)
[2020-12-29] MEDS: PIPERACILLIN SODIUM/TAZOBACTAM 3.375 GM in DEXTROSE 5% IN WATER 50 ML IV SCH ×5 (00:24→23:34)
[2020-12-29] MEDS: 0.9 % SODIUM CHLORIDE 10 ML SYRINGE IV SCH ×3 (05:57→23:38)
[2020-12-29] MEDS: INSULIN LISPRO 1 UNIT/0.01 ML UNIT SQ SCH ×4 (07:40→22:20)
[2020-12-29 07:41] LABS: Albumin 1.4 gm/dL (3.2-5.2); Blood Urea Nitrogen 14 mg/dL (8-23); Calcium 8.3 mg/dL (8.6-10.4); Carbon Dioxide 24 mmol/L (22-30); Chloride 97 mmol/L (96-108); Glomerular Filtration Rate 89; Glucose 81 mg/dL (70-105); Phosphorous 2.6 mg/dL (2.5-4.5)
[2020-12-29] MEDS: oxyCODONE HCL 5 MG TABLET PO PRN ×2 (07:44→20:46)
[2020-12-29] MEDS: HEPARIN 5,000 UNIT/ML VIAL SQ SCH ×2 (07:44→20:49)
[2020-12-29] MEDS: DOCUSATE SODIUM 100 MG CAPSULE PO SCH ×2 (07:44→20:47)
--- NOTE | 2020-12-29 14:04 | Surgical Pathology Report ---
Histology Microscopic Diagnosis Specimen A- DIGIT, LEFT FIFTH TOE, AMPUTATION: --- ULCERATION, ABSCESS AND ACUTE OSTEOMYELITIS, WITH INFLAMMATION PRESENT AT RESECTION MARGINS. --- VIABLE MARGINS OF RESECTION. --- NO MALIGNANCY IDENTIFIED. (RLF) Gross Description Received in formalin, designated left fifth toe, is an 8.5 cm long, up to 2.7 cm in diameter andrade-white digit with attached nail bed. The nail is markedly thickened, 1.3 x 0.8 cm. At the lateral aspect is a 0.5 cm andrade-brown possible ulcer. The ulcer is 0.6 cm from the nearest skin and soft tissue margin. The skin and soft tissue margin is set back from the distal bone margin 2.5 cm. The margins are inked black. No additional lesions are identified. Following decalcification entry level marketing representative sections are submitted as follows: A1 - distal tip; A2 - central toe; A3 A4 - end margin; A5 - possible ulcer. (DMT:chente) Electronically Signed Abril Saba MD, FCAP Electronically Signed 12/29/2020 14:03
--- NOTE | 2020-12-29 22:06 | Internal Med Progress Note ---
SUBJECTIVE Subjective Patient information: Note initiated : 12/29/20 at 10:01 pm Service Date, if different from initiated Date: [] Patient: Ken Hook 65 y/o M admitted on 12/22/20 for Failure to thrive, tachycardia, weakness. Chief Complaint: [left foot infection] Principal diagnosis: strep viridans bacteremia Interval history: 65 yo WM typically living with his brother emt intermediate in a motel. Says is expensive but easy though he personally would like to move to an apartment or house. Says they pay by the day. Pt tells me he was in high school and dropped out his senior year. He has 2 sons 47 and 37 yo one in [place] and one is [place]. He talks to them few times a year. 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 On admission intake: history of type 2 diabetes mellitus, medical noncompliance, presenting with 3 weeks history of left foot ulcer as well as general body weakness. There was no prior similar episode. Patient does not recall having any injury or trauma to his left foot. Patient is medically noncompliant and he is not taking any medications. Patient is complaining of 3- week history of left foot ulcer on the plantar aspect with associated severe constant sharp pain. He is also complaining of general body weakness to the point that he cannot get out of the bed for the last 3 weeks. He denies any associated fever chills or diaphoresis. 12/26 pt underwent left fifth toe and metatarsal amputation yesterday pt has new heart murmur but Trans thoracic echo was no definite vegetations. noted. Pertinent ROS: no fevers now. Additional PMFSH (Level 3 Only): NIDDM untreated DFU Constitutional Vitals: Vital Signs Temp Pulse Resp BP Pulse Ox 99.3 F H 77 20 106/65 94 12/29/20 19:22 12/29/20 19:22 12/29/20 19:22 12/29/20 19:22 12/29/20 19:22 Period Temp Pulse Resp BP Sys/Jackson Pulse Ox Last 24 Hr 98.3 F-99.3 F 72-81 16-22 106-114/62-65 92-95 Intake and Output 12/29/20 12/29/20 12/30/20 13:59 21:59 05:59 Intake Total 580 710 Output Total 775 550 Balance -195 160 Weight 92.261 kg Patient Weight 12/30/20 05:59 Weight 92.261 kg Intake & Output: Intake & Output 12/29/20 12/29/20 12/30/20 13:59 21:59 05:59 Intake Total 580 710 Output Total 775 550 Balance -195 160 Weight 92.261 kg Intake: IV 100 50 Zosyn 3.375 gm In Dextrose 5% 100 50 in Water 50 ml @ 100 mls/hr IV Q6H [facility] Rx#:[id number] Oral 480 660 Output: Void Amount 775 550 Other: Meal Breakfast Lunch Percent of Meal Consumed 100% 100% Feeding Ability Assist with Tray Set Up Assist with Tray Set Up Urine Appearance Clear Urine Color Dark Yellow Dark Yellow Urine Odor Strong Strong Additional findings Additional findings: GEN WDWN Tall white male in NAD Mentation alert and oriented x3. slow methodical speech. sounds simple minded but all answers seem appropriate CV RRR with 5/6 NORMA BHA LUSB and radiates to Right chest Lungs CTA Abd soft Calves no edema left foot with bandage at 4th MTP OBJ DATA Labs CBC & Chem 7: 12/28/20 05:36 12/29/20 05:44 Labs: Abnormal Lab Results 12/29/20 12/28/20 12/28/20 05:44 05:36 05:36 RBC 3.76 L Hgb 11.4 L Hct 34.9 L RDW 15.0 H Plt Count 130 L Lymph % (Auto) Sodium 128 L 130 L Anion Gap 7.0 L 6.0 L Calcium 8.3 L 8.3 L Direct Bilirubin Albumin 1.4 L Globulin Albumin/Globulin Ratio 12/27/20 12/27/20 05:11 05:11 RBC 3.60 L Hgb 11.3 L Hct 33.2 L RDW 14.6 H Plt Count 130 L Lymph % (Auto) 15.4 L Sodium 130 L Anion Gap 6.0 L Calcium 8.1 L Direct Bilirubin 0.4 H Albumin 1.6 L Globulin 4.8 H Albumin/Globulin Ratio 0.3 L Meds: Medications Acetaminophen (Acetaminophen 325 Mg Tablet) 650 mg PO Q6HP PRN; Protocol PRN Reason: Per Pain Protocol/Fever > 101 Last Admin: 12/27/20 18:56 Dose: 650 mg Documented by: Albuterol/Ipratropium (Ipratropium/Albuterol 3 Ml Ampul.Neb) 3 ml NEB Q4HRT PRN PRN Reason: Wheezing Dextrose (Dextrose 50% 50 Ml Vial) 0 ml IV UD PRN PRN Reason: Hypoglycemia Diagnostic Test (Pha) (Accu-Chek 1 Each Strip) 1 each FS [facility] Last Admin: 12/29/20 20:48 Dose: 1 each Documented by: Docusate Sodium (Docusate Sodium 100 Mg Capsule) 100 mg PO BID [facility] Last Admin: 12/29/20 20:47 Dose: 100 mg Documented by: Glucose (Dextrose 31 Gm Oral.Susp) 15 gm PO PRN PRN PRN Reason: Hypoglycemia Heparin Sodium (Porcine) (Heparin 5,000 Unit/Ml Vial) 5,000 unit SQ Q12 [facility] Last Admin: 12/29/20 20:49 Dose: 5,000 unit Documented by: Piperacillin Sod/Tazobactam (Sod 3.375 gm/ Dextrose) 50 mls @ 100 mls/hr IV Q6H [facility]; Protocol Last Infusion: 12/29/20 17:56 Dose: Infused Documented by: Ibuprofen (Ibuprofen 200 Mg Tablet) 800 mg PO DAILYP PRN PRN Reason: Inflammation Insulin Human Lispro (Insulin Lispro 1 Unit/0.01 Ml Unit) 0 unit SQ [facility]; Protocol Last Admin: 12/29/20 17:17 Dose: Not Given Documented by: Lactulose (Lactulose 20 Gm/30 Ml Oral.Roxanne) 10 gm PO DAILYP PRN PRN Reason: Constipation Last Admin: 12/29/20 03:45 Dose: 10 gm Documented by: Morphine Sulfate (Morphine 4 Mg/Ml Vial) 4 mg IV Q4HP PRN; Protocol PRN Reason: Per Pain Protocol Ondansetron HCl (Ondansetron 4 Mg/2 Ml Vial) 4 mg IV Q4HP PRN; Protocol PRN Reason: Nausea And Vomiting Oxycodone HCl (Oxycodone Hcl 5 Mg Tablet) 10 mg PO Q4HP PRN; Protocol PRN Reason: Per Pain Protocol Last Admin: 12/29/20 20:46 Dose: 10 mg Documented by: Senna (Sennosides 1 Tablet) 2 tab PO HSP PRN PRN Reason: Constipation Sodium Chloride (0.9 % Sodium Chloride 10 Ml Syringe) 10 ml IV Q8 [facility] Last Admin: 12/29/20 17:17 Dose: 10 ml Documented by: A/P Assessment and plan (1) Streptococcus viridans infection: Status: Acute Comment: suspicious for endocarditis given prolong time of bacteremia and the loud m urmur. Pt has been on Pip Tazo which should cover viridans and proteus which grew from foot wound and bone. WBC normalized. Has good GFR will change to endocarditis dose rocephin and also pursue ZAC. check procalcitonin in am and CRP also (2) Gram-positive cocci bacteremia: Status: Acute Comment: as above (3) Osteomyelitis of ankle or foot, left, acute: Status: Acute Comment: surgery completed 12/26 will evaluate the wound tomorrow. Time Spent With Patient Time: Total time spent is greater than 50% in coordination of care (as documente d) at patient's floor/unit and/or counseling patient: 35 mins QUALITY VTE Deep Vein Thrombosis/Pulmonary Embolism Present on Admission: No
[2020-12-30] MEDS: oxyCODONE HCL 5 MG TABLET PO PRN ×2 (03:07→07:43)
[2020-12-30] MEDS: PIPERACILLIN SODIUM/TAZOBACTAM 3.375 GM in DEXTROSE 5% IN WATER 50 ML IV SCH ×2 (05:35→11:37)
[2020-12-30] MEDS: 0.9 % SODIUM CHLORIDE 10 ML SYRINGE IV SCH (05:37)
[2020-12-30 06:50] LABS: Basophils # (Auto) 0.05 K/mcL (0.00-0.30); Basophils % (Auto) 0.6 % (0.0-2.0); Eosinophils # (Auto) 0.21 K/mcL (0.00-0.70); Eosinophils % (Auto) 2.5 % (0.0-7.0); Hematocrit 33.7 % (40.1-51.0); Hemoglobin 11.1 g/dL (13.7-17.5); Lymphocytes # (Auto) 1.34 K/mcL (1.50-4.80); Mean Cell Volume 92.1 fL (80.0-100.0); Mean Corpuscular HGB Conc 32.9 g/dL (31.0-36.0); Mean Platelet Volume 8.3 fL (7.4-10.4); Monocytes % (Auto) 7.2 % (1.0-12.0); Neutrophils % (Auto) 73.7 % (38.0-78.0); Platelet Count 116 K/mcL (140-440); RBC 3.66 M/mcL (4.63-6.08); Red Cell Distribution Width 15.2 % (11.5-14.5); WBC 8.4 K/mcL (4.5-11.0)
[2020-12-30] MEDS: INSULIN LISPRO 1 UNIT/0.01 ML UNIT SQ SCH ×2 (07:17→11:30)
[2020-12-30 07:18] LABS: ALT/SGPT 9 U/L (<40); AST/SGOT 19 U/L (<40); Albumin 1.6 gm/dL (3.2-5.2); Albumin/Globulin Ratio 0.3 (1.0-2.3); Alkaline Phosphatase 48 U/L (39-117); Blood Urea Nitrogen 12 mg/dL (8-23); Calcium 8.6 mg/dL (8.6-10.4); Carbon Dioxide 26 mmol/L (22-30); Chloride 98 mmol/L (96-108); Globulin 5.1 gm/dL (2.2-3.7); Glomerular Filtration Rate 79; Glucose 83 mg/dL (70-105)
[2020-12-30] MEDS: DOCUSATE SODIUM 100 MG CAPSULE PO SCH (07:43)
[2020-12-30] MEDS: HEPARIN 5,000 UNIT/ML VIAL SQ SCH (07:43)
[2020-12-30] MEDS ORDERED: cefTRIAXone 2 GM in DEXTROSE 5% IN WATER 50 ML IV SCH (12:15)
--- NOTE | 2020-12-30 12:51 | Discharge Summary ---
Discharge Provider Provider Patient information: Note initiated : 12/30/20 at 12:47 pm Service Date, if different from initiated Date: [] Patient: Ken Hook 65 y/o M admitted on 12/22/20 for Failure to thrive, tachycardia, weakness. Chief Complaint: [] Date of admission: 12/22/20 22:10 Discharge date: 12/30/20 Primary care physician: PCP No Consults: 12/23/20 08:17 Consult to Physician [CONS] Routine Comment: Consulting Provider: Robel Mccauley Reason For Exam: Physician to Consult 12/23/20 10:18 Consult to Physician [CONS] Routine Comment: Consulting Provider: [place] Reason For Exam: Physician to Consult Discharge Meds Discharge Medications Home Medications ibuprofen 800 mg PO QDAY PRN 12/23/20 [History Confirmed 12/23/20 Last Taken 12/22/20] COURSE Hospital Course Hospital course: 65 yo WM admitted on 12/22/20. Has had prolonged recurring strep viridans in blood cultures. Also has proteus in the foot wound. Lots of white cells but most recent debridement at proximal resection by Dr. Cortez the security delivery specialist did grow proteus and alpha strep on the . of note the blood cultures grew strep viridans on and but on the 2 were negative. I taj another 2 today. Urine drug screen not done on the but I did talk with the patient yesterday and today. I explained to him that we sending him to [facility] for [facility]. If negative can go home on oral antibiotics. IF positive will likely need placement of PICC line and prolonged IV abx. He would like to return to local SNF in that case. 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 Absolutely no meth since 3 years ago. Has used marijuana in that time. no alcohol in over 3 years. was a problem 5 years ago. 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 Discharge diagnosis: strep viridans bacteremia Secondary discharge diagnosis: left foot DFU x 3 years now left 5th toe resection Procedures: left 5th toe MTP resection Pertinent studies/significant findings: blood cultures positive for strep viridans Time Spent with Patient Time attestation: Total time spent providing and/or coordinating discharge services: Time spent: Greater than 30 minutes EXAM Constitutional Vitals: Temp Pulse Resp BP Pulse Ox 98.8 F 66 22 99/57 94 12/30/20 07:40 12/30/20 07:40 12/30/20 07:40 12/30/20 07:40 12/30/20 07:40 Additional findings Additional findings: GEN WDWN tall WM in NAD. not obese CV RRR with 5/6 NORMA heard at LUSB and radiates to Right upper chest Lungs CTA Abd soft NTND Calves no edema Skin warm and dry Left foot with 5th ray amputation foot is warm Discharge Data Data Completed and Pending Labs on day of discharge: Labs from last 24 hours 12/30/20 12/30/20 12/30/20 05:20 05:20 05:19 WBC 8.4 RBC 3.66 L Hgb 11.1 L Hct 33.7 L MCV 92.1 MCH 30.3 MCHC 32.9 RDW 15.2 H Plt Count 116 L MPV 8.3 Neut % (Auto) 73.7 Lymph % (Auto) 16.0 Bryan % (Auto) 7.2 Eos % (Auto) 2.5 Baso % (Auto) 0.6 Lymph # (Auto) 1.34 L Bryan # (Auto) 0.60 Eos # (Auto) 0.21 Baso # (Auto) 0.05 Absolute Neutrophils 6.15 Sodium 128 L Potassium 4.4 Chloride 98 Carbon Dioxide 26 Anion Gap 4.0 L BUN 12 Creatinine 1.0 GFR Calculation 79 Glucose 83 Calcium 8.6 Total Bilirubin 1.0 AST 19 ALT 9 Alkaline Phosphatase 48 C-Reactive Protein 3.20 H Total Protein 6.7 Albumin 1.6 L Globulin 5.1 H Albumin/Globulin Ratio 0.3 L Procalcitonin 0.08 Preliminary micro results at discharge 12/27/20 05:08 Blood Culture - Preliminary Blood 12/27/20 05:03 Blood Culture - Preliminary Blood 12/26/20 10:10 Anaerobic Culture - Preliminary Bone Gram Stain - Preliminary Tissue Culture - Preliminary Alpha strep Proteus mirabilis 12/24/20 05:25 Blood Culture - Preliminary Blood Streptococcus viridans Discharge Plan Patient/Caregiver Discharge Instructions Activity: ambulate only with your walker and as per physical therapy Diet: Consistent Carbohydrate Instructions: Diabetes Mellitus Type 2 in Adults, Press Reader (GEN) Prescriptions: No Action ibuprofen 200 mg Tablet 800 mg PO QDAY PRN (Reason: Inflammation) RF: 0 Follow Up Plan Follow up with: No,PCP [Primary Care Provider] - Patient Disposition: er [facility] Care Plan Goals: needs a ZAC to see if Strep Viridans is from a Aortic valve infection Hospital Course: 65 yo WM admitted on 12/22/20. Has had prolonged recurring strep viridans in blood cultures. Also has proteus in the foot wound. Lots of white cells but most recent debridement at proximal resection by Dr. Cortez the security delivery specialist did grow proteus and alpha strep on the . of note the blood cultures grew strep viridans on and but on the 2 were negative. I taj another 2 today. Urine drug screen not done on the but I did talk with the patient yesterday and today. I explained to him that we sending him to [facility] for [facility]. If negative can go home on oral antibiotics. IF positive will likely need placement of PICC line and prolonged IV abx. He would like to return to local SNF in that case. 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 Absolutely no meth since 3 years ago. Has used marijuana in that time. no alcohol in over 3 years. was a problem 5 years ago. 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 Health Concerns: look for endocardities on ZAC new Aortic stenosis murmur Prognosis: Fair Rehab Potential: Good I certify that the patient requires SNF services: No Overall status at discharge: patient is progressing back to baseline Discharge Orders: Discharge Order (Routine); Ordered 12/30/20 Ordered By: Marv CASANOVA VTE Deep Vein Thrombosis/Pulmonary Embolism Present on Admission: No
== END 2020-12-30 15:55 | disposition short-term general hospital (02) | DRG 854 ==
LOC: ED 17:38 → ICU 22:10 → MEDSUR 12-27 13:49
PROVIDERS: ADMIT Internal Medicine; ATTEND Internal Medicine